=== PATIENT | male | born 1980 | race Caucasian/White ===

== ENCOUNTER 2021-08-20 09:08 | Emergency (ER) | payer MEDICARE, MEDICAID, SELFPAY ==
--- NOTE | ~2021-08-20 | CT_ITS ---
EXAMINATION: CT ANGIOGRAM OF THE CHEST WITH AND WITHOUT CONTRAST (CT PULMONARY ANGIOGRAM FOR PE) CLINICAL INFORMATION: Palpitations, tachycardia, elevated d dimer COMPARISON: None TECHNIQUE: Prior to contrast administration, noncontrast localization images were obtained. Subsequently, multidetector volumetric imaging was performed from the thoracic inlet to below the diaphragms following the administration of 80 mL Omnipaque 350 intravenous contrast. No contrast reaction reported Sagittal, coronal, and MIP oblique sagittal reformatted images were obtained on the CT workstation, uploaded to PACS, and reviewed. This CT examination was performed using dose optimization techniques as appropriate, variously including the following: *Automated exposure control *Adjustment of mA and/or kV according to patient size (this includes techniques or standardized protocols for targeted exams where dose is matched to indication/reason for exam; i.e. extremities or head) *Use of iterative reconstruction technique Total exam dose-length product 274 mGy-cm FINDINGS: QUALITY OF STUDY/CONTRAST BOLUS: Satisfactory. Mild respiratory motion artifact limits evaluation for small nodules and emboli. PULMONARY ARTERIES: No central or segmental pulmonary emboli. THORACIC AORTA: No aneurysm or dissection. LUNGS/PLEURA/AIRWAYS: Mild biapical pleural thickening and scarring. A subpleural nodule laterally in the left lower lobe measures 0.4 cm (image 45, series 8). No pleural effusions. The airways are patent. MEDIASTINUM: The thyroid gland is unremarkable. Mild thymic tissue in the anterior mediastinum without abnormality. Normal heart size. No pericardial effusion. No hilar or mediastinal lymphadenopathy. No evidence of septal bowing or right heart strain. CHEST WALL/AXILLA: No axillary or internal mammary lymphadenopathy. OSSEOUS STRUCTURES: No acute or suspicious osseous abnormality. UPPER ABDOMEN: Unremarkable. No reflux of contrast into the hepatic veins to suggest elevated right heart pressures. CT/CT angio chest PE protocol IMPRESSION: 1. No evidence for pulmonary embolism. 2. 0.4 cm subpleural nodule in the left lower lobe is nonspecific. Following Fleischner Society guidelines, no imaging follow-up is recommended at this time. No acute cardiopulmonary process. VTE: Negative.
--- NOTE | ~2021-08-20 | XR_ITS ---
EXAMINATION: XR CHEST CLINICAL INFORMATION: Chest pain. COMPARISON: Left rib and chest radiographs dated 11/16/2015. TECHNIQUE: 2 views of the chest were obtained. FINDINGS: No significant abnormality is noted involving the heart, lungs, mediastinum, bony thorax or soft tissues. XR/XR chest 2V IMPRESSION: No acute cardiopulmonary process.
--- NOTE | 2021-08-20 09:15 | ECG_ITS ---
Test Reason : cp Blood Pressure : / mmHG Vent. Rate : 058 BPM Atrial Rate : 058 BPM P-R Int : 146 ms QRS Dur : 084 ms QT Int : 376 ms P-R-T Axes : 058 063 063 degrees QTc Int : 369 ms Sinus bradycardia Otherwise normal ECG When compared with ECG of 16-NOV-2015 14:53, No significant change was found Referred By: Generic ED Physician Electronically Signed By:ALISON BRADSHAW MD
[2021-08-20 09:23] VITALS: BP 125/78; PULSE 59; RESP 16; TEMP 36.1; O2SAT 100; BMI 22.1
[2021-08-20 09:39] LABS: MANUAL DIFF FLAG NO
[2021-08-20 09:41] LABS: Basophils Percent Auto 0.5 % (0-2); Eosinophils Absolute Auto 0.2 X10*3/uL (0.0-0.4); Eosinophils Percent Auto 3.3 % (0-4); Hematocrit 41.6 % (42.0-52.0); Imm Gran Abs Auto 0.01 X10*3/uL (0.00-0.03); Imm Gran Pct Auto 0.2 % (0.0-0.4); Lymphocytes Absolute Auto 1.5 X10*3/uL (1.2-4.9); Lymphocytes Percent Auto 23.6 % (20-40); Mean Corpuscular HGB Conc 33.7 g/dl (31.0-36.0); Mean Corpuscular Hemoglobin 29.1 pg (27.0-33.0); Mean Corpuscular Volume 86.5 fL (80.0-98.0); Mean Platelet Volume 10.3 fL (9.4-12.4); Monocytes Absolute Auto 0.4 X10*3/uL (0.1-1.2); Monocytes Percent Auto 6.1 % (2-11); Neutrophils Absolute Auto 4.2 x10*3/uL (2.0-8.3); Neutrophils Percent Auto 66.3 % (45-73); Platelet Count 246 X10*3/uL (160-400); Red Blood Count 4.81 X10*6/uL (4.60-5.80); Red Cell Distribution Width 13.2 % (11.0-16.0); White Blood Count 6.4 X10*3/uL (4.8-10.8)
[2021-08-20 09:55] LABS: Anion Gap 11 (12-20); Blood Urea Nitrogen 17 mg/dL (9-16); Calcium 9.1 mg/dL (8.4-10.2); Carbon Dioxide 26 mmol/L (22-29); Chloride 105 mmol/L (96-108); Creatinine Clr Calc Pharmacy 105.8; Estimated Glomerular Filt Rate > 60; Glucose Random 98 mg/dL (60-115); Potassium 4.6 mmol/L (3.3-5.1); Sodium 137 mmol/L (135-145)
[2021-08-20 10:03] LABS: Troponin-I High Sensitivity 9.9 ng/L (<3.5-35.0)
--- NOTE | 2021-08-20 11:33 | ED.CHESTPAIN ---
HPI - Chest Pain General Chief Complaint: Chest Pain Stated Complaint: ref by doctor: heart pain Time Seen by Provider: 08/20/21 11:33 Source: patient Mode of arrival: ambulatory Limitations: no limitations History of Present Illness HPI narrative: 40 yo male UC on q4 remicade here with intermittent episodes of palpitations with racing heart rate since yesterday. No associated CP, SOB, nausea, vomiting, diaphoresis, leg swelling or pain. No recent travel or sick contact. Has been drinking pre-workout this past week which is new. Episodes last 30 seconds and self resolve. Patient has been monitoring the episodes on his Apple watch and has noted his heart rate has gone up to 160 at times. Episodes occur at rest. Related Data Allergies Allergy/AdvReac Type Severity Reaction Status Date / Time No Known Allergies Allergy Unverified 01/30/20 16:52 [No Known Allergies*] Review of Systems Review of Systems: Yes all other systems are reviewed and are negative Constitutional: Constitutional: Reports no additional constitutional complaints, Denies body ache(s), Denies chills, Denies fever(s), Denies headache(s) and Denies weakness Eyes: Eyes: Reports no additional eye complaints and Denies change in vision ENT: Reports system reviewed and no additional complaints, except as documented, Denies dizziness, Denies headache(s), Denies nasal congestion, Denies nasal discharge and Denies neck pain Cardiovascular: Cardiovascular: Reports no additional cardiovascular complaints, Denies chest pain, Denies leg edema, Reports palpitations and Denies dyspnea Respiratory: Respiratory: Reports no additional respiratory complaints, Denies cough and Denies dyspnea Gastrointestinal: Gastrointestinal: Reports no additional gastrointestinal complaints, Denies abdominal pain, Denies diarrhea, Denies nausea and Denies vomiting Genitourinary: Genitourinary: Denies urinary incontinence Musculoskeletal: Musculoskeletal: Reports no additional musculoskeletal complaints, Denies back pain, Denies arthralgias, Denies joint swelling, Denies neck pain, Denies numbness and Denies tingling Integumentary/Breasts: Skin/Breast: Reports system reviewed and no additional complaints, except as docu and Denies rash Neurologic: Reports system reviewed and no additional complaints, except as documented, Denies Abnormal speech present, Denies dizziness, Denies headache(s), Denies numbness, Denies tingling and Denies weakness Endocrine: Endocrine: Reports palpitations [facility] Past Medical History Attestation statement: The following information was validated with the patient. Source: old records reviewed and nursing notes reviewed Medical History Ulcerative colitis Social History Social History Advance Directives: Yes Advance Directives Information Provided: Yes Advance Directives on File: No Physical Exam Vital Signs: Vital Signs: Last Vital Signs Temp 98.1 F 08/20/21 15:42 Pulse 58 08/20/21 15:42 Resp 16 08/20/21 15:42 BP 111/63 08/20/21 15:42 Pulse Ox 98 08/20/21 15:42 BMI result Body Mass Index 22.1 Const: General: cooperative, healthy appearing, comfortable and no acute distress Orientation/consciousness: patient oriented x3 Limitations: no limitations HEENT: Head: Yes normal to inspection Ears: hearing grossly normal bilaterally and TM's normal bilaterally General nose exam: Normal external nose present Face and sinus: Yes normal facial exam Mouth: Normal oral and palatal mucosa present Throat: Yes posterior oropharynx normal, Yes tonsils normal and Yes uvula midline Eyes: General: appearance normal, both eyes and all related structures Pupils: Equal, round and reactive pupils present Neck: Neck: Yes normal visual inspection Chest: Chest palpation & inspection: normal inspection of the chest Resp: Effort & Inspection: normal respiratory effort Auscultation: clear to auscultation bilaterally Cardio: Rate: regular rate Rhythm: regular rhythm Peripheral pulses: Peripheral pulses 2+ throughout GI: Inspection: Yes normal to inspection Palpation (GI): Soft to palpation and nontender Auscultation: normal bowel sounds Back/Spine/Pelvis: Thoracic/Lumbar Spine: thoracic and lumbar spine normal to inspection Skin: General skin exam: no rashes or lesions noted Neuro: General: patient oriented x3, no focal motor deficits and normal sensation to monofilament Cranial nerves: Yes Equal, round and reactive pupils present Cognition (Neuro): normal cognition Speech: No Abnormal speech present Gait exam (Neuro): Normal gait present Motor exam (neuro): 5/5 motor strength present throughout Extrem: General: Yes normal to inspection, Yes no pedal edema and Yes no calf tenderness Course Course Course Narrative: 1130-This is a rapid medical exam. 40 yo male healthy here with palpitations since last evening (episodes occurring for 30 seconds with heart rate up to 170 on apple watch). hr NORMAL now. Will need labs, EKG, CXR, period of monitoring 1430-labs unremarkable with exception of indeterminate D-dimer. Will obtain CTA to rule out PE. 1800-CTA negative for pulmonary embolism. Patient was on the monitor here in the emergency department for several hours with no ectopy or arrhythmia noted. I discussed the case with Dr. Leger. Baseline heart rate is 50. Hesitant to start any beta adiel or medications with lower baseline heart rate. Patient will need follow-up with Cardiology for Holter monitor. We discussed avoiding stimulants or caffeine, returning for persistent episodes of tachycardia. 1845-spoke to Cardiology Dr. Tay. Recommended patient follow-up with him in the office. Requested me to order a 7 day Holter monitor for the patient outpatient. Reviewed worrisome signs and symptoms of when to return to the emergency department. Comfortable discharge home. MDM - Chest Pain MDM Narrative Medical decision making narrative: Electrolyte abnormality, tachyarrhythmia Medical Records Data Attestation: I reviewed the patient's medical records. Lab Data Attestation: I reviewed the patient's lab results. Result diagrams: 08/20/21 09:35 08/20/21 09:35 Labs: Lab Results 08/20/21 08/20/21 08/20/21 Range/Units 09:35 09:35 09:35 WBC 6.4 (4.8-10.8) X10*3/uL RBC 4.81 (4.60-5.80) X10*6/uL Hgb 14.0 (14.0-18.0) g/dl Hct 41.6 L (42.0-52.0) % MCV 86.5 (80.0-98.0) fL MCH 29.1 (27.0-33.0) pg MCHC 33.7 (31.0-36.0) g/dl RDW 13.2 (11.0-16.0) % Plt Count 246 (160-400) X10*3/uL MPV 10.3 (9.4-12.4) fL Immature Gran % (Auto) 0.2 (0.0-0.4) % Neut % (Auto) 66.3 (45-73) % Lymph % (Auto) 23.6 (20-40) % [place] % (Auto) 6.1 (2-11) % Eos % (Auto) 3.3 (0-4) % Baso % (Auto) 0.5 (0-2) % Lymph # (Auto) 1.5 (1.2-4.9) X10*3/uL [place] # (Auto) 0.4 (0.1-1.2) X10*3/uL Eos # (Auto) 0.2 (0.0-0.4) X10*3/uL Baso # (Auto) 0.0 (0.0-0.2) X10*3/uL Abs Immat Gran (auto) 0.01 (0.00-0.03) X10*3/uL Absolute Neuts (auto) 4.2 (2.0-8.3) x10*3/uL Absolute Nucleated RBC 0.000 (0.0-0.012) X10*3/uL Nucleated RBC % (auto) 0.0 (0.0-0.2) /100WBC PT (9.9-13.0) SEC INR (0.9-1.1) D-Dimer High Sensitivty NG/ML Sodium 137 (135-145) mmol/L Potassium 4.6 (3.3-5.1) mmol/L Chloride 105 (96-108) mmol/L Carbon Dioxide 26 (22-29) mmol/L Anion Gap 11 L (12-20) BUN 17 H (9-16) mg/dL Creatinine 0.96 (0.5-1.4) mg/dL Estim Creat Clear Calc 105.8 Estimated GFR > 60 Random Glucose 98 (60-115) mg/dL Calcium 9.1 (8.4-10.2) mg/dL Magnesium 1.7 (1.6-2.6) mg/dL Total Bilirubin 0.7 (0.0-1.0) mg/dL Direct Bilirubin 0.3 (0.0-0.5) mg/dL AST 33 (5-37) U/L ALT 32 (0-40) U/L Alkaline Phosphatase 60 (39-117) U/L Troponin I High Sens 9.9 (<3.5-35.0) ng/L Total Protein 7.2 (6.5-8.0) g/dL Albumin 4.1 (3.5-5.0) g/dL TSH 0.97 (0.32-4.0) uIU/mL 08/20/21 08/20/21 Range/Units 13:22 13:22 WBC (4.8-10.8) X10*3/uL RBC (4.60-5.80) X10*6/uL Hgb (14.0-18.0) g/dl Hct (42.0-52.0) % MCV (80.0-98.0) fL MCH (27.0-33.0) pg MCHC (31.0-36.0) g/dl RDW (11.0-16.0) % Plt Count (160-400) X10*3/uL MPV (9.4-12.4) fL Immature Gran % (Auto) (0.0-0.4) % Neut % (Auto) (45-73) % Lymph % (Auto) (20-40) % [place] % (Auto) (2-11) % Eos % (Auto) (0-4) % Baso % (Auto) (0-2) % Lymph # (Auto) (1.2-4.9) X10*3/uL [place] # (Auto) (0.1-1.2) X10*3/uL Eos # (Auto) (0.0-0.4) X10*3/uL Baso # (Auto) (0.0-0.2) X10*3/uL Abs Immat Gran (auto) (0.00-0.03) X10*3/uL Absolute Neuts (auto) (2.0-8.3) x10*3/uL Absolute Nucleated RBC (0.0-0.012) X10*3/uL Nucleated RBC % (auto) (0.0-0.2) /100WBC PT 12.4 (9.9-13.0) SEC INR 1.1 (0.9-1.1) D-Dimer High Sensitivty 191 NG/ML Sodium (135-145) mmol/L Potassium (3.3-5.1) mmol/L Chloride (96-108) mmol/L Carbon Dioxide (22-29) mmol/L Anion Gap (12-20) BUN (9-16) mg/dL Creatinine (0.5-1.4) mg/dL Estim Creat Clear Calc Estimated GFR Random Glucose (60-115) mg/dL Calcium (8.4-10.2) mg/dL Magnesium (1.6-2.6) mg/dL Total Bilirubin (0.0-1.0) mg/dL Direct Bilirubin (0.0-0.5) mg/dL AST (5-37) U/L ALT (0-40) U/L Alkaline Phosphatase (39-117) U/L Troponin I High Sens 9.4 (<3.5-35.0) ng/L Total Protein (6.5-8.0) g/dL Albumin (3.5-5.0) g/dL TSH (0.32-4.0) uIU/mL Imaging Data CT scan - chest: Attestation: I personally reviewed and interpreted this imaging study as follows: Radiologist's impression: FINDINGS: QUALITY OF STUDY/CONTRAST BOLUS: Satisfactory. Mild respiratory motion artifact limits evaluation for small nodules and emboli. PULMONARY ARTERIES: No central or segmental pulmonary emboli.? THORACIC AORTA: No aneurysm or dissection. LUNGS/PLEURA/AIRWAYS: Mild biapical pleural thickening and scarring. A subpleural nodule laterally in the left lower lobe measures 0.4 cm (image 45, series 8). No pleural effusions. The airways are patent. MEDIASTINUM: The thyroid gland is unremarkable. Mild thymic tissue in the anterior mediastinum without abnormality. Normal heart size.? No pericardial effusion.? No hilar or mediastinal lymphadenopathy.? No evidence of septal bowing or right heart strain. CHEST WALL/AXILLA: No axillary or internal mammary lymphadenopathy. OSSEOUS STRUCTURES: No acute or suspicious osseous abnormality.? UPPER ABDOMEN: Unremarkable.? No reflux of contrast into the hepatic veins to suggest elevated right heart pressures. CT/CT angio chest PE protocol IMPRESSION: ? 1. No evidence for pulmonary embolism. 2. 0.4 cm subpleural nodule in the left lower lobe is nonspecific. Following Fleischner Society guidelines, no imaging follow-up is recommended at this time. No acute cardiopulmonary process. ? VTE: Negative. ECG Data ECG #1: Attestation: I personally reviewed and interpreted this ECG as follows: ECG interpretation date: 08/20/21 ECG interpretation time: 09:24 Interpretation: Sinus bradycardia with rate 58, normal [place], normal QRS, normal QT Discharge Plan Discharge Clinical Impression: Palpitations Patient Disposition: Home, Self-Care Instructions: Heart Palpitations (ED) Additional Instructions: Avoid any stimulants like caffeine or pre workout Follow-up with cardiology Referrals: Angel Tay MD [Physician] - 1 week Interventions: ED Discharge Assessment Last Done: 08/20/21 18:00 Discharge Date/Time: 08/20/21 18:00
[2021-08-20 12:04] LABS: Alanine Aminotransferase 32 U/L (0-40); Albumin Level 4.1 g/dL (3.5-5.0); Alkaline Phosphatase 60 U/L (39-117); Aspartate Amino Transferase 33 U/L (5-37); Bilirubin Direct 0.3 mg/dL (0.0-0.5); Bilirubin Total 0.7 mg/dL (0.0-1.0); Magnesium 1.7 mg/dL (1.6-2.6); Total Protein 7.2 g/dL (6.5-8.0)
[2021-08-20 12:25] LABS: Thyroid Stimulating Hormone 0.97 uIU/mL (0.32-4.0)
[2021-08-20 12:47] VITALS: BP 127/73; PULSE 58; O2SAT 99
[2021-08-20 13:51] LABS: Troponin-I High Sensitivity 9.4 ng/L (<3.5-35.0)
[2021-08-20 13:55] LABS: INTERNATIONAL NORM RATIO 1.1 (0.9-1.1); Prothrombin Time 12.4 SEC (9.9-13.0)
[2021-08-20 13:57] LABS: D Dimer High Sensitivity 191 NG/ML
[2021-08-20] MEDS: iohexoL 350 MG/ML 100 ML INFUS..BTL IV (15:20)
[2021-08-20 15:42] VITALS: BP 111/63; PULSE 58; RESP 16; TEMP 36.7; O2SAT 98
== END 2021-08-20 18:00 | disposition home or self-care (01) ==
PROVIDERS: Nurse Practitioner Family; Emergency Provider Emergency Medicine; PCP Internal Medicine
DX: R07.89 Other chest pain (principal); R00.2 Palpitations; Z79.899 Other long term (current) drug therapy
CPT/HCPCS: 36415; 71046; 71275; 80048; 80076; 83735; 84443; 84484; 85025; 85379; 85610; 93005; 99284; Q9967

== ENCOUNTER 2022-05-14 16:14 | Emergency (ER) | payer OTHER, SELFPAY ==
--- NOTE | ~2022-05-14 | XR_ITS ---
EXAMINATION: XR SHOULDER, RIGHT CLINICAL INFORMATION: Right shoulder dislocation COMPARISON: None TECHNIQUE: Three views of the right shoulder. FINDINGS: No dislocation of the right shoulder is identified. No calcific tendinitis is seen. Acromioclavicular joint appears unremarkable. No widening of the coracoclavicular space. There is a 7 mm calcific/bony density seen inferior to the glenoid with the appearance of a fracture fragment with donor site about the inferior glenoid. XR/XR shoulder RT min 2V IMPRESSION: No dislocation identified. Appearance of 7 mm bony fragment inferior to the glenoid.
[2022-05-14 16:19] VITALS: BP 138/87; PULSE 65; RESP 16; TEMP 36.4; O2SAT 97; BMI 22.4
--- NOTE | 2022-05-14 16:19 | ED.GENADULT ---
HPI - General Adult General Chief complaint: Extremity Injury, Upper Stated complaint: ?Shoulder dislocation Time Seen by Provider: 05/14/22 16:16 Source: patient Mode of arrival: ambulatory Limitations: no limitations History of Present Illness HPI narrative: Patient is a 41 year old assigned male at with no reported medical history presenting to the emergency department today with a dislocated right shoulder. Patient states that he was skiing 2 days ago when his right shoulder dislocated. Patient states that he was seen at an emergency department, his shoulder was put back in, and he was placed in a sling. Patient states that he was not wearing his sling when he went to reach for something with his right arm and his shoulder dislocated again. Patient denies any dizziness, lightheadedness, abdominal pain, nausea, vomiting, fever, chills, blurry vision, double vision, loss of vision, chest pain, difficulty breathing, shortness of breath, back pain, night sweats, pain with urination, increased urinary frequency, increased urinary urgency, blood in his urine or stool, syncope or a near syncopal episode, bowel incontinence, bladder incontinence, bowel retention, bladder retention, or any other complaints at this time. Onset (ago): minute(s) Location: right and upper extremity Radiation: non-radiation Severity: moderate Severity scale (1-10): 4 Relieving factors: none Exacerbating factors: none Associated symptoms: denies other symptoms Treatments prior to arrival: none Related Data Allergies Allergy/AdvReac Type Severity Reaction Status Date / Time No Known Allergies Allergy Verified 05/14/22 16:18 [No Known Allergies*] Review of Systems Constitutional: Constitutional: Reports no additional constitutional complaints, Denies chills, Denies fever(s) and Denies night sweats Eyes: Eyes: Reports no additional eye complaints, Denies blurry vision, Denies change in vision, Denies diplopia, Denies eye discharge, Denies loss of vision and Denies eye pain ENT: Denies dizziness Cardiovascular: Cardiovascular: Reports no additional cardiovascular complaints, Denies chest pain, Denies lightheadedness, Denies Loss of Consciousness and Denies dyspnea Respiratory: Respiratory: Reports no additional respiratory complaints and Denies dyspnea Gastrointestinal: Gastrointestinal: Reports no additional gastrointestinal complaints, Denies abdominal pain, Denies melena, Denies hematochezia, Denies change in bowel habits and Denies change in stool character Genitourinary: Genitourinary: Reports no additional male genitourinary complaints, Denies hematuria, Denies oliguria, Denies difficulty urinating, Denies dysuria, Denies urinary frequency, Denies urinary hesitancy, Denies urinary incontinence and Denies urinary urgency Musculoskeletal: Musculoskeletal: Reports no additional musculoskeletal complaints, Denies numbness and Denies tingling Comments: right sholder dislocation Neurologic: Denies dizziness, Denies loss of vision, Denies numbness and Denies tingling Psychiatric: Psychiatric: Reports no additional psychiatric complaints Endocrine: Endocrine: Reports no additional endocrine complaints Hematologic/Lymphatic: Hematologic/Lymphatic: Reports no additional hematologic/lymphatic complaints Allergic/Immunologic: Allergic/Immunologic: Reports no additional allergic/immunologic complaints PMFSH Past Medical History Attestation statement: The following information was validated with the patient. Source: old records reviewed and nursing notes reviewed Medical History Ulcerative colitis Social History Social History Advance Directives: No Advance Directives Information Provided: Yes Physical Exam ED Vital Signs: Vital Signs - 24 hr 05/14/22 16:19 Temperature 97.5 F Pulse Rate 65 Respiratory Rate 16 Blood Pressure 138/87 Pulse Oximetry 97 Oxygen Delivery Method Room Air BMI result Body Mass Index 22.4 Const General: cooperative, no acute distress, alert and awake Nutritional Appearance: well nourished Orientation/consciousness: patient oriented x3 Limitations: no limitations [facility] Head: Yes normal to inspection and Yes atraumatic Ears: hearing grossly normal bilaterally and external ears normal General nose exam: Normal external nose present, no nasal discharge noted and no epistaxis Face and sinus: Yes normal facial exam, No abrasion and No laceration Mouth: Normal oral and palatal mucosa present, no drooling and no muffled voice Eyes General: appearance normal, both eyes and all related structures Periorbital: periorbital findings normal Eyelids: Yes eyelids normal Conjunctivae: conjunctivae normal Pupils: Equal, round and reactive pupils present EOM: EOMs intact bilaterally Neck Neck: Yes normal visual inspection, Yes full ROM and Yes no lymphadenopathy Chest Chest palpation & inspection: normal inspection of the chest Resp Effort & Inspection: normal respiratory effort and able to speak in complete sentences Auscultation: clear to auscultation bilaterally Cardio Rate: regular rate Rhythm: regular rhythm GI Inspection: Yes normal to inspection Palpation (GI): Soft to palpation, not firm, nontender, no guarding and not rigid Neuro General: patient oriented x3 and moves all extremities Cranial nerves: Yes Equal, round and reactive pupils present Cognition (Neuro): normal cognition Motor exam (neuro): 5/5 motor strength present throughout Sensory Exam: Normal double simultaneous stimulation for sensation Coordination: [id number] test normal Extrem Other: right shoulder obviously dislocated, limited ROM of right shoulder secondary to pain General: Yes capillary refill normal Psych Appearance: grossly normal Mental Status: mental status grossly normal Affect: normal affect Attitude: cooperative Thought process: Normal thought process present Thought content: Normal thought content present Insight: Good insight present (Psych) Procedures Orthopedic Joint Reduction Joint #1: Time Out Performed: Yes Side: right Joint Reduction Location: shoulder Shoulder Technique Used (if applicable): traction/counter-traction Technique used: traction/counter-traction Post-reduction neuro exam: intact Post-reduction vascular: intact Post Reduction X-Ray Obtained: Yes Post Reduction X-Ray Results: reduced Splint Applied: Yes Patient Tolerated Procedure: well Orthopedic Splinting/Casting Injury #1: Side: right Upper Extremity Injury Location: shoulder Upper Extremity Immobilizer: sling/shoulder immobilizer Medical Decision Making Medical Decision Making MDM Narrative: Patient is a 41 year old assigned male at with no reported medical history presenting to the emergency department today with a dislocated right shoulder. Patient's physical exam showed an obviously dislocated right shoulder. Patient's shoulder was reduced, per procedure note, without incident. Patient's right shoulder x-ray showed no acute process. Patient aware of 7mm bony density noted on this imaging and has follow up planned already. Patient's right shoulder was placed in a sling, without incident. I explained my physical exam findings as well as all test results to the patient. I answered all questions asked by the patient. I stressed the importance of the patient taking his medication as prescribed. I stressed the importance of the patient following up with his primary care provider and an orthopedic provider. I stressed the importance of the patient returning to the emergency department immediately if his symptoms were to worsen or if he were to develop any dizziness, shortness of breath, difficulty breathing, chest pain, blurry vision, loss of vision, nausea, vomiting, abdominal pain, fever, chills, back pain, or any other complaints. Patient verbalized agreement and understanding with this treatment plan and discharge. Differential Diagnosis Differential Diagnoses: The differential diagnosis associated with the presentation includes shoulder dislocation Radiology Impression Discussion of test interpretation with radiology: I have reviewed the radiologist's reading. Radiologist Impression: My interpretation is in agreement with the radiologist's impression of this imaging study. EXAMINATION: XR SHOULDER, RIGHT CLINICAL INFORMATION: Right shoulder dislocation? COMPARISON: None? TECHNIQUE: Three views of the right shoulder. FINDINGS: No dislocation of the right shoulder is identified. No calcific tendinitis is seen. Acromioclavicular joint appears unremarkable. No widening of the coracoclavicular space. There is a 7 mm calcific/bony density seen inferior to the glenoid with the appearance of a fracture fragment with donor site about the inferior glenoid.? XR/XR shoulder RT min 2V IMPRESSION: No dislocation identified. ? Appearance of 7 mm bony fragment inferior to the glenoid. Dictated By: Edison Gomes MD Signed By: Electronically signed by Edison Gomes MD 05/14/22 [id number] Discharge Plan Discharge Clinical Impression: Dislocation of shoulder Patient Disposition: Home, Self-Care Instructions: Shoulder Dislocation (ED) Additional Instructions: Follow up with your primary care provider and your orthopedic provider. Return to the emergency department immediately if your symptoms worsen or if you develop any dizziness, shortness of breath, difficulty breathing, chest pain, blurry vision, loss of vision, nausea, vomiting, abdominal pain, fever, chills, back pain, or any other complaints. Referrals: [facility] [place] [facility] [Provider Group] (Call to establish and follow up with an orthopedic provider. ) Kali Lemus MD [Primary Care Provider] - Stand Alone Forms: Work/School Release Interventions: ED Discharge Assessment Last Done: 05/14/22 16:45 Discharge Date/Time: 05/14/22 16:46 Print Language: Serbian
== END 2022-05-14 16:46 | disposition home or self-care (01) ==
PROVIDERS: Emergency Provider Emergency Medicine; PCP Internal Medicine
DX: M24.411 Recurrent dislocation, right shoulder (principal)
CPT/HCPCS: 23650; 73030; 99282; 99284

== ENCOUNTER 2023-08-22 08:36 | Inpatient (IN) | payer OTHER, SELFPAY ==
[2023-08-22] VITALS (9 sets, daily range): BP systolic 128–169; BP diastolic 71–99; PULSE 55–71; RESP 16–19; TEMP 36.1–36.7; O2SAT 95–100; BMI 22.4
--- NOTE | ~2023-08-22 | CT_ITS ---
EXAMINATION: CT chest w IV con. CLINICAL INFORMATION: Reason for Exam Blunt injury/scapular fracture COMPARISON: Prior CT 2021 TECHNIQUE: Multidetector volumetric CT imaging of the chest was done. Axial MIP volume rendering provided. Sagittal and coronal reformatted images were obtained. This CT examination was performed using dose optimization techniques as appropriate, variously including the following: *Automated exposure control *Adjustment of mA and/or kV according to patient size (this includes techniques or standardized protocols for targeted exams where dose is matched to indication/reason for exam; i.e. extremities or head) *Use of iterative reconstruction technique CONTRAST: Noncontrasted study. DLP: 419 mGy-cm FINDINGS: BRIDGE INSTRUCTOR: LINES/TUBES: Staff Command And Control Officer reviewed, no lines. LUNGS: Lung parenchyma: No evidence of significant interstitial disease. Lung nodules/masses: No lung mass or suspicious spiculated nodules, there are few scattered tiny nonspecific lung nodular densities measuring up to 4 mm or less, 4 mm nodule middle lobe has not changed from prior exam. AIRWAYS: Trachea and bronchi are normal. PLEURA: No pleural effusion or pneumothorax. MEDIASTINUM AND SUZAN: No mediastinal, hilar or axillary lymphadenopathy. No mediastinal mass. VESSELS: HEART AND PERICARDIUM: Thoracic aorta is normal in size. Heart is normal in size. No pericardial effusion. No coronary calcifications. Pulmonary arteries are normal in size. LOWER NECK, AXILLA: The visualized thyroid gland is unremarkable. No axillary mass or adenopathy. VISUALIZED ABDOMEN: Unremarkable CHEST WALL AND BONES: No chest wall mass. There is a comminuted fracture of the left scapula involving the left scapular blade, multiple fragments mildly displaced. The glenoid process and articular surface is intact. Adjacent acromioclavicular joint and clavicles are intact. Mild degenerative osteoarthritis of both shoulders. No CT evidence of associated vascular injury. CT/CT chest w IV con IMPRESSION: 1. Comminuted fracture of the left scapula involving the scapular blade, multiple fragments mildly displaced. 2. No CT evidence of associated vascular injury. 3. No lung mass or suspicious spiculated nodules, there are few scattered tiny nonspecific lung nodular densities measuring up to 4 mm or less. According to the UPDATED 2017 Fleischner Society recommendations, the advised follow-up imaging for solid nodules <6 mm in the middle/lower lobes is no routine follow up.
--- NOTE | ~2023-08-22 | CT_ITS ---
EXAMINATION: CT CERVICAL SPINE WITHOUT CONTRAST CLINICAL INFORMATION: Neck injury and pain. History of cervical fracture COMPARISON: None available. TECHNIQUE: Multiple 3.0 and 0.6 mm axial images were obtained from base of skull to T1 levels without IV contrast enhancement. Sagittal and coronal 2.0 mm bone window images were reconstructed from axial image data. This CT examination was performed using dose optimization techniques as appropriate, variously including the following: *Automated exposure control *Adjustment of mA and/or kV according to patient size (this includes techniques or standardized protocols for targeted exams where dose is matched to indication/reason for exam; i.e. extremities or head) *Use of iterative reconstruction technique DLP: 566 mGy-cm FINDINGS: C1/C2: Bony structures are intact with normal alignment. There is no spinal stenosis. C2/C3: Bony structures are intact with normal alignment. There is no spinal stenosis. There is mild asymmetric left C2/C3 neuroforaminal stenosis. Bilateral apophyseal joints are intact with normal alignment. C3/C4: Bony structures are intact with mild kyphosis. There is no spinal stenosis. Bilateral C3/C4 neuroforamina are patent. Bilateral apophyseal joints are intact with normal alignment. C4/C5: C4-C5 ACDF, with intervertebral spacer, fixation with anterior metallic plate and cortical screws is seen. There is no spinal stenosis. There is mild asymmetric left C4/C5 neuroforaminal stenosis. Bilateral apophyseal joints are intact with normal alignment. C5/C6: C5-C6 ACDF, with intervertebral spacer, fixation with anterior metallic plate and cortical screws is seen. There is no spinal stenosis. Bilateral C5/C6 neuroforamina are patent. Bilateral apophyseal joints are intact with normal alignment. C6/C7: Bony structures are intact with normal alignment. Large left anterior C6-C7 bridging syndesmophytes are present. There is mild decrease in intervertebral disc height. There is no spinal stenosis. Bilateral C6/C7 neuroforamina are mildly stenosed. A sclerotic bone island is seen at the left lateral border of C7 vertebral body. Bilateral apophyseal joints are intact with normal alignment. C7/T1: Bony structures are intact with normal alignment. There is marked loss of intervertebral disc height. Anterior superior T1 limbus vertebra is seen. There is no spinal stenosis. Bilateral C7/T1 neuroforamina are mildly stenosed. Bilateral apophyseal joints are intact with normal alignment. CT/CT cervical spine wo IV con IMPRESSION: 1. No evidence of acute fracture or dislocation. 2. Status post C4-C6 ACDF, with intervertebral spacers, fixation with anterior metallic plate and cortical screws. 3. Mild asymmetric left C2/C3, left C4/C5, bilateral C6/C7 and bilateral C7/T1 neuroforaminal stenosis. 4. Large left anterior C6-C7 bridging syndesmophytes.
--- NOTE | ~2023-08-22 | CT_ITS ---
EXAMINATION: CT HEAD WITHOUT CONTRAST CLINICAL INFORMATION: Blunt head trauma without loss of consciousness, significant head injury and posttraumatic headache. COMPARISON: None available. TECHNIQUE: Contiguous axial imaging was performed from the skull base to vertex without intravenous administration of contrast. This CT examination was performed using dose optimization techniques as appropriate, variously including the following: *Automated exposure control *Adjustment of mA and/or kV according to patient size (this includes techniques or standardized protocols for targeted exams where dose is matched to indication/reason for exam; i.e. extremities or head) *Use of iterative reconstruction technique DLP: 766 mGy-cm FINDINGS: Ventricles, sulci and cisterns are normal. There is no midline shift, no abnormal intra- or extra- axial fluid accumulation. [place] and white matter differentiation is normal. Bone window images show no evidence of skull fracture. Bilateral ethmoid sinuses show marked mucosal thickening causing almost complete opacification, worse on the right side. Mild mucosal thickening is also seen at anterior wall of bilateral sphenoid sinuses. Right frontal sinus is not well pneumatized. CT/CT head/brain wo IV con IMPRESSION: 1. Normal CT scan of the brain. 2. No intracranial hemorrhage or skull fracture is seen. 3. No evidence of space occupying lesion could be found. 4. The current plain CT scan of the brain shows no diagnostic evidence of acute cerebral infarction. 5. Marked bilateral ethmoid sinusitis.
--- NOTE | ~2023-08-22 | CT_ITS ---
EXAMINATION: CT SHOULDER WITHOUT CONTRAST, LEFT CLINICAL INFORMATION: Left shoulder pain following injury. Question scapular fracture. COMPARISON: Left shoulder radiographs done earlier the same day. TECHNIQUE: Contiguous axial CT images of the left shoulder were obtained without contrast. Multiplanar reformats were provided and reviewed. 3-D reconstructions were obtained on an independent workstation with concurrent physician supervision and provided for review. FINDINGS: There is a mildly displaced and slightly comminuted fracture through the inferior scapular angle and extending proximally within the central aspect of the scapular body. The dominant oblique fracture line measures up to 9.5 cm in craniocaudal dimension with a central scapular fracture gap measuring up to 0.9 cm. The fracture gap along the inferior angle measures up to 0.3 cm. There is superior extension through the central aspect of the scapular spine as well as through the superior margin of the scapula where there is apex dorsal angulation. No extension of a fracture line to the glenoid articular surface. No additional fracture. No dislocation. No significant joint space narrowing or marginal osteophytes. No concerning lytic or blastic osseous lesion. The visualized muscles and tendons are grossly intact, however, evaluation is significantly limited on CT examination. No soft tissue mass or fluid collection. No axillary lymphadenopathy. The visualized left lung is clear. CT/CT shoulder LT wo IV con IMPRESSION: Mildly displaced and comminuted fracture of the scapular body extending from the superior margin inferiorly through the central aspect of the scapular spine as well as through the scapular body where it contacts the inferior angle. No extension to an articular surface.
--- NOTE | ~2023-08-22 | XR_ITS ---
EXAMINATION: XR SHOULDER, LEFT CLINICAL INFORMATION: Pain. Injury. COMPARISON: None available. TECHNIQUE: Two views of the left shoulder. FINDINGS: There are 2 dense sclerotic lines and single longer radiolucent line questionable for fracture of the scapula. No clavicle or humerus fracture seen. Glenohumeral and acromioclavicular joints are normal-appearing. Visualized left lung is clear. There may be soft tissue swelling adjacent to the left shoulder. XR/XR shoulder LT min 2V IMPRESSION: Question left scapula fracture. A CT of the left shoulder has been ordered.
--- NOTE | 2023-08-22 08:41 | ED_ITS ---
HPI - Extremity Problem General Chief complaint: Extremity Injury, Upper Stated complaint: L shoulder inj Time Seen by Provider: 08/22/23 08:41 Source: patient and family (patient's daughter) Mode of arrival: wheelchair Limitations: no limitations History of Present Illness HPI Narrative: Patient is a 42 year old assigned male at with a history of multiple right shoulder dislocations presenting to the emergency department today with left shoulder pain after a branch fell on him. Patient states that he was doing tree work when a large branch fell onto his left shoulder. Patient denies any loss of consciousness, dizziness, lightheadedness, abdominal pain, nausea, vomiting, fever, chills, blurry vision, double vision, loss of vision, chest pain, difficulty breathing, shortness of breath, back pain, night sweats, pain with urination, increased urinary frequency, increased urinary urgency, blood in his urine or stool, syncope or a near syncopal episode, bowel incontinence, bladder incontinence, bowel retention, bladder retention, or any other complaints at this time. MD Complaint: extremity pain Onset (ago): minute(s) Pain Consistency: constant Location: left and upper extremity Severity scale (1-10): >10 Quality: stabbing, sharp and constant Radiation: none Relieving factors: immobilization Exacerbating factors: range of motion and palpation Associated symptoms: denies other symptoms Related Data Allergies Allergy/AdvReac Type Severity Reaction Status Date / Time No Known Allergies Allergy Verified 08/22/23 08:39 [No Known Allergies*] Review of Systems 2 Constitutional: Constitutional: Reports no additional constitutional complaints, Denies chills, Denies fever(s) and Denies night sweats Eyes: Eyes: Reports no additional eye complaints, Denies blurry vision, Denies change in vision, Denies diplopia, Denies eye discharge, Denies loss of vision and Denies eye pain ENT: Denies dizziness Cardiovascular: Cardiovascular: Reports no additional cardiovascular complaints, Denies chest pain, Denies lightheadedness, Denies Loss of Consciousness and Denies dyspnea Respiratory: Respiratory: Reports no additional respiratory complaints and Denies dyspnea Gastrointestinal: Gastrointestinal: Reports no additional gastrointestinal complaints, Denies abdominal pain, Denies melena, Denies hematochezia, Denies change in bowel habits and Denies change in stool character Genitourinary: Genitourinary: Reports no additional male genitourinary complaints, Denies hematuria, Denies oliguria, Denies difficulty urinating, Denies dysuria, Denies urinary frequency, Denies urinary hesitancy, Denies urinary incontinence and Denies urinary urgency Musculoskeletal: Musculoskeletal: Reports no additional musculoskeletal complaints, Denies numbness and Denies tingling Comments: left shoulder pain Neurologic: Denies dizziness, Denies loss of vision, Denies numbness and Denies tingling Psychiatric: Psychiatric: Reports no additional psychiatric complaints Endocrine: Endocrine: Reports no additional endocrine complaints Hematologic/Lymphatic: Hematologic/Lymphatic: Reports no additional hematologic/lymphatic complaints Allergic/Immunologic: Allergic/Immunologic: Reports no additional allergic/immunologic complaints PMFSH Past Medical History Attestation statement: The following information was validated with the patient. Source: old records reviewed and nursing notes reviewed Medical History Ulcerative colitis Social History Social History Advance Directives: Yes Advance Directives Information Provided: Yes Advance Directives on File: No Physical Exam 2 Vital Signs: Vital Signs: Last Vital Signs Temp 96.9 F 08/22/23 08:36 Pulse 57 08/22/23 14:05 Resp 19 08/22/23 14:05 BP 137/96 H 08/22/23 14:05 Pulse Ox 98 08/22/23 14:05 O2 Del Method Room Air 08/22/23 14:05 BMI result Body Mass Index 22.4 Const: General: cooperative, no acute distress, alert and awake Nutritional Appearance: well nourished Orientation/consciousness: patient oriented x3 Limitations: no limitations HEENT: Head: Yes normal to inspection and Yes atraumatic Ears: hearing grossly normal bilaterally and external ears normal General nose exam: Normal external nose present, no nasal discharge noted and no epistaxis Face and sinus: Yes normal facial exam, No abrasion and No laceration Mouth: Normal oral and palatal mucosa present, no drooling and no muffled voice Eyes: General: appearance normal, both eyes and all related structures P eriorbital: periorbital findings normal Eyelids: Yes eyelids normal C onjunctivae: conjunctivae normal Pupils: Equal, round and reactive pupils present EOM: EOMs intact bilaterally Neck: Neck: Yes normal visual inspection, Yes full ROM and Yes no lymphadenopathy Chest: Chest palpation & inspection: normal inspection of the chest Resp: Effort & Inspection: normal respiratory effort and able to speak in complete sentences GI: Inspection: Yes normal to inspection Neuro: General: patient oriented x3 and moves all extremities Cranial nerves: Yes Equal, round and reactive pupils present Cognition (Neuro): n ormal cognition Motor exam (neuro): 5/5 motor strength present throughout Sensory Exam: Normal double simultaneous stimulation for sensation C oordination: [id number] test normal Extrem: Other: pain to palpation of the left scapula, pain with ROM of the entire left upper extremity General: Yes normal to inspection and Yes capillary refill normal Psych: Appearance: grossly normal Mental Status: mental status grossly normal Affect: normal affect Attitude: cooperative Thought process: N ormal thought process present Thought content: Normal thought content present Insight: Good insight present (Psych) Course Reevaluation(s) Reevaluation #1: Patient with intractable pain, will continue to give IV Dilaudid, discussed with Case management who feels that the patient can me admitted Time: 16:19 Medications Administered Discontinued Medications Generic Name Dose Route Start Last Admin Trade Name Jacquie PRN Reason Stop Dose Admin Diazepam 2.5 mg 08/22/23 08:45 08/22/23 08:49 Diazepam 10 Mg/2 Ml Cartridge IVPUSH 08/22/23 08:46 2.5 mg STAT STA Administration Hydromorphone HCl 1 mg 08/22/23 09:00 08/22/23 09:15 Hydromorphone Hcl 1 Mg/Ml Syringe IVPUSH 08/22/23 09:01 1 mg ONCE ONE Administration Protocol Hydromorphone HCl 2 mg 08/22/23 10:09 08/22/23 10:23 Hydromorphone Hcl 2 Mg/Ml Vial IVPUSH 08/22/23 10:10 2 mg ONCE ONE Administration Protocol Hydromorphone HCl 2 mg 08/22/23 12:06 08/22/23 12:18 Hydromorphone Hcl 2 Mg/Ml Vial IVPUSH 08/22/23 12:07 2 mg ONCE ONE Administration Protocol Hydromorphone HCl 2 mg 08/22/23 13:45 08/22/23 14:05 Hydromorphone Hcl 2 Mg/Ml Vial IVPUSH 08/22/23 13:46 2 mg ONCE ONE Administration Protocol Medical Decision Making Medical Decision Making MDM Narrative: Patient is a 42 year old assigned male at with a history of multiple right shoulder dislocations presenting to the emergency department today with left shoulder pain after being struck by a branch. Patient's physical exam was as noted in the physical exam portion of this note. Patient's blood work was unremarkable. Patient's left shoulder x-ray showed evidence of possible scapular injury. Patient's left shoulder CT showed a significant scapular fracture. Patient's head and c-spine CTs were negative for any acute process. I spoke to the orthopedic team who recommended a sling and out patient follow up. Patient is having intractable pain that persists even after 2.5mg of Valium, an initial dose of 1mg dilaudid, and a follow up dose of 2mg of dilaudid. Will admit the patient for pain control. Patient's LUE was placed in a sling, without incident. Patient's PMS intact prior to and after sling placement. I consulted with my attending physician Dr. Albright who recommended admission for intractactable pain and continued monitoring. I spoke to the hospitalist team who declined to admit for intractable pain and continued monitoring secondary to high risk for pulmonary contusion. Patient will be signed out to Dr. Albright who will continue working with the hospitalist team for admission of this patient. I explained my physical exam findings as well as all test results to the patient and the patient's family at the bed side. I answered all questions asked by the patient and the patient's family at the bed side. Patient and the patient's family at the bed side verbalized agreement and understanding with this treatment plan and admission. Differential Diagnosis Differential Diagnoses: The differential diagnosis associated with the presentation includes Intractable pain Scapular fracture Admission/Observation Consideration of admission/observation: Escalation of care including admission/observation considered Patient to be admitted. Consult Healthcare Provider Management of the patient was discussed with: Hospitalist (refused to admit - see MDM Rationale portion of this note.) and [employer]er (spoke to the orthopedic team as noted in the MDM Rationale portion of this note.) Lab Data [facility] Lab Attestation statement: I reviewed the patient's lab results. My interpretation of these results are in the MDM Rationale portion of this note. 08/22/23 09:44 08/22/23 09:44 Labs: Lab Results 08/22/23 Range/Units 09:44 WBC 10.1 (4.8-10.8) X10*3/uL RBC 5.00 (4.60-5.80) X10*6/uL Hgb 14.5 (14.0-18.0) g/dl Hct 42.9 (42.0-52.0) % MCV 85.8 (80.0-98.0) fL MCH 29.0 (27.0-33.0) pg MCHC 33.8 (31.0-36.0) g/dl RDW 13.4 (11.0-16.0) % Plt Count 286 (160-400) X10*3/uL MPV 10.2 (9.4-12.4) fL Immature Gran % (Auto) 0.4 (0.0-0.4) % Neut % (Auto) 79.0 H (45-73) % Lymph % (Auto) 13.3 L (20-40) % Price % (Auto) 4.8 (2-11) % Eos % (Auto) 2.0 (0-4) % Baso % (Auto) 0.5 (0-2) % Lymph # (Auto) 1.4 (1.2-4.9) X10*3/uL Price # (Auto) 0.5 (0.1-1.2) X10*3/uL Eos # (Auto) 0.2 (0.0-0.4) X10*3/uL Baso # (Auto) 0.1 (0.0-0.2) X10*3/uL Abs Immat Gran (auto) 0.04 H (0.00-0.03) X10*3/uL Absolute Neuts (auto) 8.0 (2.0-8.3) x10*3/uL Absolute Nucleated RBC 0.000 (0.0-0.012) X10*3/uL Nucleated RBC % (auto) 0.0 (0.0-0.2) /100WBC PT 12.4 (11.1-13.3) SEC INR 1.0 (0.9-1.1) APTT 29.3 (26.0-36.8) SEC Sodium 139 (135-145) mmol/L Potassium 4.7 (3.3-5.1) mmol/L Chloride 107 (96-108) mmol/L Carbon Dioxide 26 (22-29) mmol/L Anion Gap 11 L (12-20) BUN 18 H (9-16) mg/dL Creatinine 0.78 (0.5-1.4) mg/dL Estim Creat Clear Calc 129.2 Estimated GFR > 60 Random Glucose 118 H (60-115) mg/dL Calcium 8.2 L D (8.4-10.2) mg/dL Magnesium 2.0 (1.6-2.6) mg/dL Total Bilirubin 0.7 (0.0-1.0) mg/dL AST 32 (5-37) U/L ALT 37 (0-40) U/L Alkaline Phosphatase 61 (39-117) U/L Total Protein 7.1 (6.5-8.0) g/dL Albumin 4.0 (3.5-5.0) g/dL Independent Interpretation I performed an independent interpretation of an: Plain X-Ray and CT Scan Interpretation: My interpretation is in agreement with the radiologist's impression of these imaging studies. - EXAMINATION: XR SHOULDER, LEFT CLINICAL INFORMATION: Pain. Injury. COMPARISON: None available. TECHNIQUE: Two views of the left shoulder. FINDINGS: There are 2 dense sclerotic lines and single longer radiolucent line questionable for fracture of the scapula. No clavicle or humerus fracture seen. Glenohumeral and acromioclavicular joints are normal-appearing. Visualized left lung is clear. There may be soft tissue swelling adjacent to the left shoulder. XR/XR shoulder LT min 2V IMPRESSION: Question left scapula fracture. A CT of the left shoulder has been ordered. Dictated By: Tish Stein MD Signed By: Electronically signed by Tish Stein MD 08/22/23 0927 - EXAMINATION: CT SHOULDER WITHOUT CONTRAST, LEFT CLINICAL INFORMATION: Left shoulder pain following injury. Question scapular fracture. COMPARISON: Left shoulder radiographs done earlier the same day. TECHNIQUE: Contiguous axial CT images of the left shoulder were obtained without contrast. Multiplanar reformats were provided and reviewed. 3-D reconstructions were obtained on an independent workstation with concurrent physician supervision and provided for review. FINDINGS: There is a mildly displaced and slightly comminuted fracture through the inferior scapular angle and extending proximally within the central aspect of the scapular body. The dominant oblique fracture line measures up to 9.5 cm in craniocaudal dimension with a central scapular fracture gap measuring up to 0.9 cm. The fracture gap along the inferior angle measures up to 0.3 cm. There is superior extension through the central aspect of the scapular spine as well as through the superior margin of the scapula where there is apex dorsal angulation. No extension of a fracture line to the glenoid articular surface. No additional fracture. No dislocation. No significant joint space narrowing or marginal osteophytes. No concerning lytic or blastic osseous lesion. The visualized muscles and tendons are grossly intact, however, evaluation is significantly limited on CT examination. No soft tissue mass or fluid collection. No axillary lymphadenopathy. The visualized left lung is clear. CT/CT shoulder LT wo IV con IMPRESSION: Mildly displaced and comminuted fracture of the scapular body extending from the superior margin inferiorly through the central aspect of the scapular spine as well as through the scapular body where it contacts the inferior angle. No extension to an articular surface. Dictated By: Yazan Chavez MD Signed By: Electronically signed by Yazan Chavez MD 08/22/23 1009 - EXAMINATION: CT HEAD WITHOUT CONTRAST CLINICAL INFORMATION: Blunt head trauma without loss of consciousness, significant head injury and posttraumatic headache. COMPARISON: None available. TECHNIQUE: Contiguous axial imaging was performed from the skull base to vertex without intravenous administration of contrast. This CT examination was performed using dose optimization techniques as appropriate, variously including the following: *Automated exposure control *Adjustment of mA and/or kV according to patient size (this includes techniques or standardized protocols for targeted exams where dose is matched to indication/reason for exam; i.e. extremities or head) *Use of iterative reconstruction technique DLP: 766 mGy-cm FINDINGS: Ventricles, sulci and cisterns are normal. There is no midline shift, no abnormal intra- or extra- axial fluid accumulation. Villalat and white matter differentiation is normal. Bone window images show no evidence of skull fracture. Bilateral ethmoid sinuses show marked mucosal thickening causing almost complete opacification, worse on the right side. Mild mucosal thickening is also seen at anterior wall of bilateral sphenoid sinuses. Right frontal sinus is not well pneumatized. CT/CT head/brain wo IV con IMPRESSION: 1. Normal CT scan of the brain. 2. No intracranial hemorrhage or skull fracture is seen. 3. No evidence of space occupying lesion could be found. 4. The current plain CT scan of the brain shows no diagnostic evidence of acute cerebral infarction. 5. Marked bilateral ethmoid sinusitis. Dictated By: Fahad Chavarria Signed By: Electronically signed by Fahad Chavarria 08/22/23 1120 - EXAMINATION: CT CERVICAL SPINE WITHOUT CONTRAST CLINICAL INFORMATION: Neck injury and pain. History of cervical fracture COMPARISON: None available. TECHNIQUE: Multiple 3.0 and 0.6 mm axial images were obtained from base of skull to T1 levels without IV contrast enhancement. Sagittal and coronal 2.0 mm bone window images were reconstructed from axial image data. This CT examination was performed using dose optimization techniques as appropriate, variously including the following: *Automated exposure control *Adjustment of mA and/or kV according to patient size (this includes techniques or standardized protocols for targeted exams where dose is matched to indication/reason for exam; i.e. extremities or head) *Use of iterative reconstruction technique DLP: 566 mGy-cm FINDINGS: C1/C2: Bony structures are intact with normal alignment. There is no spinal stenosis. C2/C3: Bony structures are intact with normal alignment. There is no spinal stenosis. There is mild asymmetric left C2/C3 neuroforaminal stenosis. Bilateral apophyseal joints are intact with normal alignment. C3/C4: Bony structures are intact with mild kyphosis. There is no spinal stenosis. Bilateral C3/C4 neuroforamina are patent. Bilateral apophyseal joints are intact with normal alignment. C4/C5: C4-C5 ACDF, with intervertebral spacer, fixation with anterior metallic plate and cortical screws is seen. There is no spinal stenosis. There is mild asymmetric left C4/C5 neuroforaminal stenosis. Bilateral apophyseal joints are intact with normal alignment. C5/C6: C5-C6 ACDF, with intervertebral spacer, fixation with anterior metallic plate and cortical screws is seen. There is no spinal stenosis. Bilateral C5/C6 neuroforamina are patent. Bilateral apophyseal joints are intact with normal alignment. C6/C7: Bony structures are intact with normal alignment. Large left anterior C6-C7 bridging syndesmophytes are present. There is mild decrease in intervertebral disc height. There is no spinal stenosis. Bilateral C6/C7 neuroforamina are mildly stenosed. A sclerotic bone island is seen at the left lateral border of C7 vertebral body. Bilateral apophyseal joints are intact with normal alignment. C7/T1: Bony structures are intact with normal alignment. There is marked loss of intervertebral disc height. Anterior superior T1 limbus vertebra is seen. There is no spinal stenosis. Bilateral C7/T1 neuroforamina are mildly stenosed. Bilateral apophyseal joints are intact with normal alignment. CT/CT cervical spine wo IV con IMPRESSION: 1. No evidence of acute fracture or dislocation. 2. Status post C4-C6 ACDF, with intervertebral spacers, fixation with anterior metallic plate and cortical screws. 3. Mild asymmetric left C2/C3, left C4/C5, bilateral C6/C7 and bilateral C7/T1 neuroforaminal stenosis. 4. Large left anterior C6-C7 bridging syndesmophytes. Dictated By: Fahad Chavarria Signed By: Electronically signed by Fahad Chavarria 08/22/23 4100 Radiology Impression Discussion of test interpretation with radiology: I have reviewed the radiologist's reading. Independent Historian Clinical information obtained from an independent historian. History obtained from or confirmed by: Other (patient's family at the bed side provided additional history and confirmed the history provided by the patient.) Procedures Orthopedic Splinting/Casting Injury #1: Side: left Upper Extremity Injury Location: shoulder Upper Extremity Immobilizer: sling/shoulder immobilizer Critical Care Time Critical Care Time Critical Care Time: Yes Total Critical Care Time: 131 Attestation: I spent 131 minutes of Critical Care Time with this patient. This does not include time spent on separately reported billable procedures. Discharge Plan Discharge Clinical Impression: Closed left scapular fracture, Intractable pain Patient Disposition: Admitted As Inpatient Print Language: [place]
--- NOTE | 2023-08-22 08:45 | PC.NURSE ---
informed German RN of stated weight by pt and will need accurate bed scale weight for weight based med administration
[2023-08-22] MEDS: diazePAM 10 MG/2 ML CARTRIDGE 2.5 MG IVPUSH (08:49)
[2023-08-22] MEDS: HYDROmorphone HCl 1 MG/ML SYRINGE IVPUSH ×2 (09:15→20:20)
--- NOTE | 2023-08-22 09:45 | PC.NURSE ---
family at bedside, ice packs to front and back of shoulder/scapula/l upper chest/back
[2023-08-22 09:50] LABS: MANUAL DIFF FLAG NO
[2023-08-22 09:51] LABS: Basophils Absolute Auto 0.1 X10*3/uL (0.0-0.2); Basophils Percent Auto 0.5 % (0-2); Eosinophils Absolute Auto 0.2 X10*3/uL (0.0-0.4); Hematocrit 42.9 % (42.0-52.0); Hemoglobin 14.5 g/dl (14.0-18.0); Imm Gran Abs Auto 0.04 X10*3/uL (0.00-0.03); Imm Gran Pct Auto 0.4 % (0.0-0.4); Lymphocytes Absolute Auto 1.4 X10*3/uL (1.2-4.9); Lymphocytes Percent Auto 13.3 % (20-40); Mean Corpuscular HGB Conc 33.8 g/dl (31.0-36.0); Mean Corpuscular Volume 85.8 fL (80.0-98.0); Mean Platelet Volume 10.2 fL (9.4-12.4); Monocytes Absolute Auto 0.5 X10*3/uL (0.1-1.2); Monocytes Percent Auto 4.8 % (2-11); Platelet Count 286 X10*3/uL (160-400); Red Cell Distribution Width 13.4 % (11.0-16.0); White Blood Count 10.1 X10*3/uL (4.8-10.8)
[2023-08-22 10:05] LABS: Alanine Aminotransferase 37 U/L (0-40); Alkaline Phosphatase 61 U/L (39-117); Anion Gap 11 (12-20); Aspartate Amino Transferase 32 U/L (5-37); Bilirubin Total 0.7 mg/dL (0.0-1.0); Blood Urea Nitrogen 18 mg/dL (9-16); Calcium 8.2 mg/dL (8.4-10.2); Carbon Dioxide 26 mmol/L (22-29); Chloride 107 mmol/L (96-108); Creatinine Clr Calc Pharmacy 129.2; Estimated Glomerular Filt Rate > 60; Glucose Random 118 mg/dL (60-115); Potassium 4.7 mmol/L (3.3-5.1); Sodium 139 mmol/L (135-145); Total Protein 7.1 g/dL (6.5-8.0)
[2023-08-22 10:06] LABS: Prothrombin Time 12.4 SEC (11.1-13.3)
[2023-08-22 10:09] LABS: Partial Thromboplastin Time 29.3 SEC (26.0-36.8)
[2023-08-22] MEDS: HYDROmorphone HCl 2 MG/ML VIAL IVPUSH ×3 (10:23→14:05)
--- NOTE | 2023-08-22 10:34 | PC.NURSE ---
ALERT, PAIN IMPROVED AFTER DILAUDID 2MG, SLING APPLIED AND ICE REAPPLIED, APPEARS MORE COMFORTABLE ANDF ABLE TO MOVE AND REPOSITION SELF IN BED
--- NOTE | 2023-08-22 11:38 | PC.NURSE ---
pt reports significant pain improvement, alert, speech clear, skin wpd, talking with family
--- NOTE | 2023-08-22 12:40 | PHA.MEDREC ---
Pharmacy Consult ? Medication Reconciliation Pharmacy has completed the medication reconciliation. Patient reports getting Remicade monthly but unsure of dose. No other home meds
[2023-08-22] MEDS: fentaNYL citrate/PF 100 MCG/2 ML VIAL IVPUSH (16:49)
[2023-08-22] MEDS: ondansetron HCL 4 MG/2 ML VIAL IVPUSH ×2 (16:50→22:55)
[2023-08-22] MEDS: iohexoL 350 MG/ML 100 ML INFUS..BTL IV (16:59)
--- NOTE | 2023-08-22 17:54 | P.HPHOSP_ITS ---
History of Present Illness Date of Service: 08/22/23 Attending physician on admission: [facility] Chief Complaint: intractable pain, scapular fracture 42-year-old male with history of ulcerative colitis on Remicade infusions and remote history of polysubstance abuse in remission (last use crack cocaine and inhaled heroin 5 years ago) presented to the ED earlier today after assisting his friend with yd work. He states they were not paying attention and a large branch fell and hit him in the back knocking him to the ground and knocked the wind out of him. He reports immediate pain in the left parascapular area. He denies any head injury or loss of consciousness. No lightheadedness. He is reporting some nausea but denies any vomiting. While in the ED, patient mildly hypertensive likely secondary to pain with blood pressure controlled on admission at 128/71. Vital signs otherwise stable. Hematology studies unremarkable. Renal function and electrolyte levels normal. Head CT negative for any acute intracranial abnormality. Cervical spine negative for any acute osseous abnormality. CT of the left shoulder shows a mildly displaced and comminuted fracture of the scapular body extending from the superior margin inferiorly through the central aspect of the scapular spine as well as through the scapular body where it contacts the inferior angle. No extension to the articular surface. Chest CT appears negative for any pulmonary contusion. In the ED, has required multiple doses of IV Dilaudid, morphine for adequate pain control. Patient is still reporting pain of 8/10 in the left periscapular area. Orthopedics was consulted and recommends immobilization with sling and pain management. He does not recommend surgery at this time. Patient will be admitted for further management of intractable pain secondary to left scapular fracture. Review of Systems 2 Review of Systems: General: No fevers, malaise, unintentional weight loss HEENT: No blurred vision, diplopia. No sore throat, nasal congestion, rhinorrhea, sinus pain, ear pain Cardiovascular: No chest pain, palpitations, or leg edema Respiratory: No shortness of breath, wheezing, cough GI: +nausea. No abdominal pain, vomiting, diarrhea, constipation, melena, hematochezia : No dysuria, hematuria, increased urinary frequency, decreased urinary output MSK: No myalgia, back pain. +scapular pain Neuro: No headaches, weakness, paresthesias Skin: No rashes or lesions PMFSH Medical History History of substance abuse Ulcerative colitis Social History Unable to assess alcohol history related to: Unknown Patient Tobacco Use Status: Never used Tobacco Use of substances other than those prescribed or required for medical reasons: No Advance Directives: Yes Advance Directives Information Provided: Yes Advance Directives on File: No Nutrition Risks: No Nutritional Risk Meds Allergies Allergy/AdvReac Type Severity Reaction Status Date / Time No Known Allergies Allergy Verified 08/22/23 08:39 [No Known Allergies*] Active Medications: Current Medications Acetaminophen (Acetaminophen 325 Mg Tablet) 650 mg PO Q6H PRN PRN Reason: Pain, Mild (Pain Scale 1-3) Hydromorphone HCl (Hydromorphone Hcl 1 Mg/Ml Syringe) 1 mg IVPUSH Q3H PRN; Protocol PRN Reason: Pain, Severe (Pain Scale 7-10) Lidocaine (Lidocaine 4 % Patch Adh..Patch) 1 patch TRANSDERMA DAILY [facility]; Protocol Ondansetron HCl (Ondansetron Hcl 4 Mg/2 Ml Vial) 4 mg IVPUSH Q8H PRN PRN Reason: Nausea and Vomiting Oxycodone HCl (Oxycodone Hcl Immed Release 5 Mg Tablet) 10 mg PO Q4H PRN PRN Reason: Pain, Moderate(Pain Scale 4-6) Senna (Sennosides 8.6 Mg Tablet) 17.2 mg PO BEDTIME PRN PRN Reason: Constipation Sodium Chloride (0.9 % Sodium Chloride Flush 3 Ml Syringe) 3 ml IVFLUSH QSHIFT [facility] Physical Exam 2 Vital Signs and Narrative: Vital Signs: Last Vital Signs Temp 96.9 F 08/22/23 08:36 Pulse 55 08/22/23 16:47 Resp 16 08/22/23 16:47 BP 128/71 08/22/23 16:47 Pulse Ox 95 08/22/23 16:47 O2 Del Method Room Air 08/22/23 16:47 BMI result Body Mass Index 22.4 Constitutional - Awake and Alert, No apparent distress Eyes - PERRLA, EOMI Cardiovascular - S1S2, RRR, No edema. 2+ redial pulses Respiratory - Normal lung expansion, Normal respiratory effort, No respiratory distress, CTA bilaterally Gastrointestinal - NT / ND; +BS; No rebound or guarding Extremities - no calf tenderness bilaterally, no swelling Musculoskeletal - LUE immobilized in sling Skin - Warm/Dry Neurological - Alert & oriented x3, 5/5 career services assistant strength bilaterally, sensation in tact Psychological - Appropriate affect Results Labs 08/23/23 04:25 08/23/23 04:25 Labs: Laboratory Results - last 24 hr 08/22/23 09:44 MCV 85.8 MCH 29.0 MCHC 33.8 RDW 13.4 Plt Count 286 MPV 10.2 Immature Gran % (Auto) 0.4 Neut % (Auto) 79.0 H Lymph % (Auto) 13.3 L Sully % (Auto) 4.8 Eos % (Auto) 2.0 Baso % (Auto) 0.5 Lymph # (Auto) 1.4 Sully # (Auto) 0.5 Eos # (Auto) 0.2 Baso # (Auto) 0.1 Abs Immat Gran (auto) 0.04 H Absolute Neuts (auto) 8.0 Absolute Nucleated RBC 0.000 Nucleated RBC % (auto) 0.0 PT 12.4 INR 1.0 APTT 29.3 Anion Gap 11 L Estim Creat Clear Calc 129.2 Estimated GFR > 60 Random Glucose 118 H Calcium 8.2 L D Magnesium 2.0 Total Bilirubin 0.7 AST 32 ALT 37 Alkaline Phosphatase 61 Total Protein 7.1 Albumin 4.0 Imaging Radiologist's Impressions: Impressions Shoulder X-Ray 08/22/23 08:49 IMPRESSION: Question left scapula fracture. A CT of the left shoulder has been ordered. Cervical Spine CT 08/22/23 09:55 IMPRESSION: 1. No evidence of acute fracture or dislocation. 2. Status post C4-C6 ACDF, with intervertebral spacers, fixation with anterior metallic plate and cortical screws. 3. Mild asymmetric left C2/C3, left C4/C5, bilateral C6/C7 and bilateral C7/T1 neuroforaminal stenosis. 4. Large left anterior C6-C7 bridging syndesmophytes. Head CT 08/22/23 09:55 IMPRESSION: 1. Normal CT scan of the brain. 2. No intracranial hemorrhage or skull fracture is seen. 3. No evidence of space occupying lesion could be found. 4. The current plain CT scan of the brain shows no diagnostic evidence of acute cerebral infarction. 5. Marked bilateral ethmoid sinusitis. Shoulder CT 08/22/23 09:55 IMPRESSION: Mildly displaced and comminuted fracture of the scapular body extending from the superior margin inferiorly through the central aspect of the scapular spine as well as through the scapular body where it contacts the inferior angle. No extension to an articular surface. Assessment and Plan (1) Intractable pain: Status: Acute (2) Closed left scapular fracture: Status: Acute Plan 42-year-old male with history of ulcerative colitis on Remicade infusions and remote history of polysubstance abuse in remission (last use crack cocaine and inhaled heroin 5 years ago) admitted for further management of intractable pain secondary to left scapular fracture. # left scapular fracture with intractable pain -per orthopedic surgery, no surgical intervention at this time -continue with pain management with IV Dilaudid and oxycodone 10 mg on pain scale p.r.n. -pain management consult for possible nerve block -orthopedic surgery consult -PT eval -continue immobilization with sling per Orthopedic surgery # history of polysubstance abuse -remote history of crack cocaine and heroin use in remission x5 years -not on MAT. Would like like to speak with addiction medicine given concerns about high dose narcotics and relapse. However, does not desire MAT. Addiction med consult placed -patient desires HIV and hepatitis-C testing -urine drug screen pending #UC -stable, no acute flare DVT prophylaxis- scps early ambulation full code Patient requires inpatient stay at least 2 midnights for management of intractable pain secondary to closed left scapular fracture requiring IV pain management in patient with remote history of drug abuse Quality Stroke Does the patient have a stroke diagnosis?: No VTE Prior VTE?: No VTE Risk Level:: Medical - moderate - high VTE Device Contraindication: Treatment Not Indicated VTE Drug Contraindication: N/A - Med Ordered
[2023-08-22] MEDS: Lidocaine 4 % Patch ADH..PATCH 1 PATCH TRANSDERMA (18:41)
--- NOTE | 2023-08-22 19:15 | PC.NURSE ---
Assumed care of pt. Pt sitting upright on stretcher, eating ice cream. no acute distress noted at this time. Pending admission, continuing plan of care.
--- NOTE | 2023-08-22 19:46 | MHC.EDTECH ---
Assumed care at 1900
--- NOTE | 2023-08-22 20:41 | MHC.EDTECH ---
Transferred care to RAHEL Aiken at 20:15
[2023-08-23 00:50] VITALS: BP 128/74; PULSE 54; RESP 16; TEMP 36.4; O2SAT 97
--- NOTE | 2023-08-23 00:55 | MHC.EDTECH ---
THIS PCT ASSUMED CARE OF PATIENT AT 2300 ,VITALS TAKEN ,THIS PCT TOLD PATIENT THAT WE HAVE TO CHANGE INTO HOSPITAL GOWN ,PT SAID HE WAS TOLD BY PREVIOUS STAFF THAT HE DID NOT WANT TO CHANGE ,AND HE WAS COMFORTABLE ,RN ABEL IS AWARE .
[2023-08-23 03:08] LABS: Amphetamine Screen Urine Not Detected (Not Detect); Barbiturates, Urine Not Detected (Not Detect); Benzodiazepines Screen Urine Not Detected (Not Detect); Cannabinoid Screen Urine Not Detected (Not Detect); Cocaine Screen Urine Not Detected (Not Detect); Fentanyl, urine POSITIVE (Not Detect); Opiate Screen Urine Not Detected (Not Detect); Phencyclidine Screen Urine Not Detected (Not Detect)
[2023-08-23 04:12] VITALS: BP 116/65; PULSE 55; RESP 16; TEMP 36.6; O2SAT 97
[2023-08-23] MEDS: HYDROmorphone HCl 1 MG/ML SYRINGE IVPUSH ×3 (04:28→11:05)
[2023-08-23 06:53] LABS: Basophils Absolute Auto 0.1 X10*3/uL (0.0-0.2); Basophils Percent Auto 0.6 % (0-2); Eosinophils Absolute Auto 0.2 X10*3/uL (0.0-0.4); Eosinophils Percent Auto 2.6 % (0-4); Hematocrit 40.9 % (42.0-52.0); Hemoglobin 13.9 g/dl (14.0-18.0); Imm Gran Abs Auto 0.02 X10*3/uL (0.00-0.03); Imm Gran Pct Auto 0.3 % (0.0-0.4); Lymphocytes Absolute Auto 2.1 X10*3/uL (1.2-4.9); Lymphocytes Percent Auto 27.1 % (20-40); MANUAL DIFF FLAG NO; Mean Corpuscular Hemoglobin 29.1 pg (27.0-33.0); Mean Corpuscular Volume 85.6 fL (80.0-98.0); Mean Platelet Volume 10.5 fL (9.4-12.4); Monocytes Absolute Auto 0.7 X10*3/uL (0.1-1.2); Monocytes Percent Auto 9.5 % (2-11); Neutrophils Absolute Auto 4.7 x10*3/uL (2.0-8.3); Neutrophils Percent Auto 59.9 % (45-73); Platelet Count 308 X10*3/uL (160-400); Red Blood Count 4.78 X10*6/uL (4.60-5.80); Red Cell Distribution Width 13.5 % (11.0-16.0); White Blood Count 7.8 X10*3/uL (4.8-10.8)
[2023-08-23 06:56] VITALS: BP 120/50; PULSE 51; RESP 16; TEMP 36.8; O2SAT 97
[2023-08-23 07:20] LABS: Anion Gap 11 (12-20); Blood Urea Nitrogen 11 mg/dL (9-16); Calcium 8.8 mg/dL (8.4-10.2); Carbon Dioxide 25 mmol/L (22-29); Chloride 107 mmol/L (96-108); Estimated Glomerular Filt Rate > 60; Glucose Random 112 mg/dL (60-115); Potassium 3.9 mmol/L (3.3-5.1); Sodium 139 mmol/L (135-145)
[2023-08-23] MEDS: ondansetron HCL 4 MG/2 ML VIAL IVPUSH (07:48)
[2023-08-23] MEDS: 0.9 % Sodium Chloride Flush 3 ML SYRINGE IVFLUSH (07:53)
[2023-08-23] MEDS: Lidocaine 4 % Patch ADH..PATCH 1 PATCH TRANSDERMA (07:54)
--- NOTE | 2023-08-23 08:20 | P.DS_ITS ---
DS: Providers Provider Date of Service: 08/23/23 Date of admission: 08/22/23 17:48 Primary care physician: Kali Lemus MD Consults: 08/22/23 17:51 Consult to Orthopedics Routine Consulting Provider: [facility] Reason for consultation: scapular fracture 08/22/23 18:01 Consult to Pain Management Routine Consulting Provider: [facility] Pain Management Reason for consultation: intractable pain, left scapular fracture 08/22/23 18:05 Addiction Medicine Routine Consulting Provider: Addiction Covering Reason for consultation: intracble pain scapular fx. hx heroin/crack use 5 years remission. pt reque DS: Diagnosis Discharge Diagnosis (1) Intractable pain: Status: Acute (2) Closed left scapular fracture: Status: Acute DS: Summary Hospital Course Hospital Course: Chief Complaint: intractable pain, scapular fracture 42-year-old male with history of ulcerative colitis on Remicade infusions and remote history of polysubstance abuse in remission (last use crack cocaine and inhaled heroin 5 years ago) presented to the ED earlier today after assisting his friend with yd work. He states they were not paying attention and a large branch fell and hit him in the back knocking him to the ground and knocked the wind out of him. He reports immediate pain in the left parascapular area. He denies any head injury or loss of consciousness. No lightheadedness. He is reporting some nausea but denies any vomiting. While in the ED, patient mildly hypertensive likely secondary to pain with blood pressure controlled on admission at 128/71. Vital signs otherwise stable. Hematology studies unremarkable. Renal function and electrolyte levels normal. Head CT negative for any acute intracranial abnormality. Cervical spine negative for any acute osseous abnormality. CT of the left shoulder shows a mildly displaced and comminuted fracture of the scapular body extending from the superior margin inferiorly through the central aspect of the scapular spine as well as through the scapular body where it contacts the inferior angle. No extension to the articular surface. Chest CT appears negative for any pulmonary contusion. In the ED, has required multiple doses of IV Dilaudid, morphine for adequate pain control. Patient is still reporting pain of 8/10 in the left periscapular area. Orthopedics was consulted and recommends immobilization with sling and pain management. He does not recommend surgery at this time. Patient will be admitted for further management of intractable pain secondary to left scapular fracture. Hospital course: Patient was observed overnight due to intractable pain that was treated with IV dilaudid and later started on oxycodone, CT chest with contrasted showed no pulmonary contusion. Ortho recommends sling Time Attestation Discharge Coordination Time (in mins): 35 Quality: Safe Use of Opioids Does Pt have an Active Cancer Diagnosis on the Problem List?: No Quality: Stroke Does the patient have a stroke diagnosis?: No Physical Exam Vital Signs: Vital Signs: Last Vital Signs Temp 98.2 F 08/23/23 06:56 Pulse 51 08/23/23 06:56 Resp 16 08/23/23 06:56 BP 120/50 L 08/23/23 06:56 Pulse Ox 97 08/23/23 06:56 O2 Del Method Room Air 08/23/23 06:56 BMI result Body Mass Index 22.4 General: AO X 3, no acute distress Resp: CTA bilateral CVS: S1,S2,RRR GI: +BS, NT, no distention Skin: No rash MsK; has left lar sking Neuro: motor grossly intact Psych: appropriate affect DS: Data Data Completed and Pending Labs on day of discharge: Laboratory Results - last 24 hr 08/22/23 08/23/23 08/23/23 09:44 02:54 04:25 WBC 10.1 7.8 RBC 5.00 4.78 Hgb 14.5 13.9 L Hct 42.9 40.9 L MCV 85.8 85.6 MCH 29.0 29.1 MCHC 33.8 34.0 RDW 13.4 13.5 Plt Count 286 308 MPV 10.2 10.5 Immature Gran % (Auto) 0.4 0.3 Neut % (Auto) 79.0 H 59.9 Lymph % (Auto) 13.3 L 27.1 Schleicher % (Auto) 4.8 9.5 Eos % (Auto) 2.0 2.6 Baso % (Auto) 0.5 0.6 Lymph # (Auto) 1.4 2.1 Schleicher # (Auto) 0.5 0.7 Eos # (Auto) 0.2 0.2 Baso # (Auto) 0.1 0.1 Abs Immat Gran (auto) 0.04 H 0.02 Absolute Neuts (auto) 8.0 4.7 Absolute Nucleated RBC 0.000 0.000 Nucleated RBC % (auto) 0.0 0.0 PT 12.4 INR 1.0 APTT 29.3 Sodium 139 139 Potassium 4.7 3.9 Chloride 107 107 Carbon Dioxide 26 25 Anion Gap 11 L 11 L BUN 18 H 11 Creatinine 0.78 0.71 Estim Creat Clear Calc 129.2 142.0 Estimated GFR > 60 > 60 Random Glucose 118 H 112 Calcium 8.2 L D 8.8 D Magnesium 2.0 Total Bilirubin 0.7 AST 32 ALT 37 Alkaline Phosphatase 61 Total Protein 7.1 Albumin 4.0 Urine Opiates Screen Not Detected Urine Fentanyl Screen POSITIVE H Ur Barbiturates Screen Not Detected Ur Phencyclidine Scrn Not Detected Ur Amphetamines Screen Not Detected U Benzodiazepines Scrn Not Detected Urine Cocaine Screen Not Detected U Marijuana (THC) Screen Not Detected Discharge Plan Discharge Anticipated Discharge Date/Time: 08/23/23 08:21 Patient Disposition: Home, Self-Care Discharge Diagnosis: Left scapula fracture Referrals: Kali Lemus MD [Primary Care Provider] - 1 Week Diet: Advance to usual diet Activity on Discharge: As tolerated Stand Alone Forms: Patient Portal Discharge page Print Language: Singaporean Care Plan Goals: recovery from left scapula fracture Health Concerns: left scapular fracture pain due to scapular fracture Plan of Treatment: take oxycodone as recommended and follow up with Orthopedic surgery and your primary care physician within a week, call for appointment. Assessment: See above
[2023-08-23 08:28] LABS: HIV AB/AG Nonreactive (Nonreactive); HIV Num 1 0.25 S/CO (0.00-0.99)
--- NOTE | 2023-08-23 12:13 | HO.ADDICTCON ---
History of Present Illness Date of Service: 08/23/23 Chief Complaint: scapular fracture, intractable pain Reason for Consult: [employer] intermediary recovery ---question regarding pain management Sources of Information: patient interviewed and chart reviewed HPI Narrative: Patient is a 42 year old male currently medically admitted following an injury resulting in fracture of his scapula. Patient requested consult as he has been in recovery for over 5 years and was very concerned about his need for pain medications. Seen in ED, while awaiting transfer to [facility] floor. GF present at bedside. He reports that he has been free from any substance use fo rover 5 years. In that time he has fractured his wrist and did not require pain medication--he was able to manage pain in other ways. He feels that his current injury is challenging him as he has required opiate pain medication to get any type of relief. He shared that his daughter was very concerned about his recovery as well. This technical writer and editor validated patients concerns and provided some guidance around making a plan for medications once at home. Reviewed recovery supports, reviewed appropriateness and importance (in some cases) of adequate pain management as a way to ensure healing occurs. Discussed taper plan for medications. Discussed differentiating btwn discomfort and pain. Discussed other modalities to address pain Assured patient time in recovery is not erased as a result of this -patient verbalized concern about this. Review of Systems Constitutional: Reports as per HPI Diagnostics Vital Signs (24Hr): Vital Signs - 24 hr 08/22/23 12:21 08/22/23 12:35 08/22/23 14:05 Temperature Pulse Rate 61 59 57 Respiratory Rate 16 18 19 Blood Pressure 162/98 H 143/85 H 137/96 H Pulse Oximetry 98 98 98 Oxygen Delivery Method Room Air Room Air Room Air 08/22/23 16:47 08/22/23 20:00 08/23/23 00:50 Temperature 98.1 F 97.5 F Pulse Rate 55 56 54 Respiratory Rate 16 16 16 Blood Pressure 128/71 134/76 128/74 Pulse Oximetry 95 95 97 Oxygen Delivery Method Room Air Room Air Room Air 08/23/23 04:12 08/23/23 06:56 Temperature 97.9 F 98.2 F Pulse Rate 55 51 Respiratory Rate 16 16 Blood Pressure 116/65 120/50 L Pulse Oximetry 97 97 Oxygen Delivery Method Room Air Room Air BMI result Body Mass Index 22.4 Labs 08/23/23 04:25 08/23/23 04:25 Labs: Laboratory Results - last 48 hr 08/22/23 08/22/23 08/23/23 09:44 18:27 02:54 WBC 10.1 RBC 5.00 Hgb 14.5 Hct 42.9 MCV 85.8 MCH 29.0 MCHC 33.8 RDW 13.4 Plt Count 286 MPV 10.2 Immature Gran % (Auto) 0.4 Neut % (Auto) 79.0 H Lymph % (Auto) 13.3 L [place] % (Auto) 4.8 Eos % (Auto) 2.0 Baso % (Auto) 0.5 Lymph # (Auto) 1.4 [place] # (Auto) 0.5 Eos # (Auto) 0.2 Baso # (Auto) 0.1 Abs Immat Gran (auto) 0.04 H Absolute Neuts (auto) 8.0 Absolute Nucleated RBC 0.000 Nucleated RBC % (auto) 0.0 PT 12.4 INR 1.0 APTT 29.3 Sodium 139 Potassium 4.7 Chloride 107 Carbon Dioxide 26 Anion Gap 11 L BUN 18 H Creatinine 0.78 Estim Creat Clear Calc 129.2 Estimated GFR > 60 Random Glucose 118 H Calcium 8.2 L D Magnesium 2.0 Total Bilirubin 0.7 AST 32 ALT 37 Alkaline Phosphatase 61 Total Protein 7.1 Albumin 4.0 Urine Opiates Screen Not Detected Urine Fentanyl Screen POSITIVE H Ur Barbiturates Screen Not Detected Ur Phencyclidine Scrn Not Detected Ur Amphetamines Screen Not Detected U Benzodiazepines Scrn Not Detected Urine Cocaine Screen Not Detected U Marijuana (THC) Screen Not Detected HIV 1&2 Ab/P24 Ag 4thGn Nonreactive 08/23/23 04:25 WBC 7.8 RBC 4.78 Hgb 13.9 L Hct 40.9 L MCV 85.6 MCH 29.1 MCHC 34.0 RDW 13.5 Plt Count 308 MPV 10.5 Immature Gran % (Auto) 0.3 Neut % (Auto) 59.9 Lymph % (Auto) 27.1 [place] % (Auto) 9.5 Eos % (Auto) 2.6 Baso % (Auto) 0.6 Lymph # (Auto) 2.1 [place] # (Auto) 0.7 Eos # (Auto) 0.2 Baso # (Auto) 0.1 Abs Immat Gran (auto) 0.02 Absolute Neuts (auto) 4.7 Absolute Nucleated RBC 0.000 Nucleated RBC % (auto) 0.0 PT INR APTT Sodium 139 Potassium 3.9 Chloride 107 Carbon Dioxide 25 Anion Gap 11 L BUN 11 Creatinine 0.71 Estim Creat Clear Calc 142.0 Estimated GFR > 60 Random Glucose 112 Calcium 8.8 D Magnesium Total Bilirubin AST ALT Alkaline Phosphatase Total Protein Albumin Urine Opiates Screen Urine Fentanyl Screen Ur Barbiturates Screen Ur Phencyclidine Scrn Ur Amphetamines Screen U Benzodiazepines Scrn Urine Cocaine Screen U Marijuana (THC) Screen HIV 1&2 Ab/P24 Ag 4thGn Imaging Radiology Impressions: ITS Impressions Shoulder X-Ray 08/22/23 08:49 IMPRESSION: Question left scapula fracture. A CT of the left shoulder has been ordered. Cervical Spine CT 08/22/23 09:55 IMPRESSION: 1. No evidence of acute fracture or dislocation. 2. Status post C4-C6 ACDF, with intervertebral spacers, fixation with anterior metallic plate and cortical screws. 3. Mild asymmetric left C2/C3, left C4/C5, bilateral C6/C7 and bilateral C7/T1 neuroforaminal stenosis. 4. Large left anterior C6-C7 bridging syndesmophytes. Head CT 08/22/23 09:55 IMPRESSION: 1. Normal CT scan of the brain. 2. No intracranial hemorrhage or skull fracture is seen. 3. No evidence of space occupying lesion could be found. 4. The current plain CT scan of the brain shows no diagnostic evidence of acute cerebral infarction. 5. Marked bilateral ethmoid sinusitis. Shoulder CT 08/22/23 09:55 IMPRESSION: Mildly displaced and comminuted fracture of the scapular body extending from the superior margin inferiorly through the central aspect of the scapular spine as well as through the scapular body where it contacts the inferior angle. No extension to an articular surface. Chest CT 08/22/23 17:17 IMPRESSION: 1. Comminuted fracture of the left scapula involving the scapular blade, multiple fragments mildly displaced. 2. No CT evidence of associated vascular injury. 3. No lung mass or suspicious spiculated nodules, there are few scattered tiny nonspecific lung nodular densities measuring up to 4 mm or less. According to the UPDATED 2017 Fleischner Society recommendations, the advised follow-up imaging for solid nodules <6 mm in the middle/lower lobes is no routine follow up. Mental Status Exam Mental Status Exam Patient Appearance: Well Grooomed and Appropriate Level of Consciousness: Awake, Appropriate and Alert Patient Behavior: Appropriate Mood Description: Anxious Affect Description: Anxious Speech Pattern: Clear Thought Process: Intact Thought Content: positive for Intact Judgement: Good Medications Medications Current Medications Acetaminophen (Acetaminophen 325 Mg Tablet) 650 mg PO Q6H PRN PRN Reason: Pain, Mild (Pain Scale 1-3) Hydromorphone HCl (Hydromorphone Hcl 1 Mg/Ml Syringe) 1 mg IVPUSH Q3H PRN; Protocol PRN Reason: Pain, Severe (Pain Scale 7-10) Last Admin: 08/23/23 11:05 Dose: 1 mg Lidocaine (Lidocaine 4 % Patch Adh..Patch) 1 patch TRANSDERMA DAILY [facility]; Protocol Last Admin: 08/23/23 07:54 Dose: 1 patch Ondansetron HCl (Ondansetron Hcl 4 Mg/2 Ml Vial) 4 mg IVPUSH Q8H PRN PRN Reason: Nausea and Vomiting Last Admin: 08/23/23 07:48 Dose: 4 mg Oxycodone HCl (Oxycodone Hcl Immed Release 5 Mg Tablet) 10 mg PO Q4H PRN PRN Reason: Pain, Moderate(Pain Scale 4-6) Senna (Sennosides 8.6 Mg Tablet) 17.2 mg PO BEDTIME PRN PRN Reason: Constipation Sodium Chloride (0.9 % Sodium Chloride Flush 3 Ml Syringe) 3 ml IVFLUSH QSHIFT [facility] Last Admin: 08/23/23 07:53 Dose: 3 ml Allergies Allergies Allergy/AdvReac Type Severity Reaction Status Date / Time No Known Allergies Allergy Verified 08/22/23 08:39 [No Known Allergies*] Assessment & Plan Assessment & Plan (1) Closed left scapular fracture: Status: Acute Code(s): S42.102A - Fracture of unspecified part of scapula, left shoulder, initial encounter for closed fracture Assessment and Plan: discussed taper plan and including loved ones in this plan for ongoing support encouraged patient to discuss pain management plan with attending provider will provide with CCC information should patient have any questions regarding KARLEE once discharged Total time managing care of this patient today _35___ minutes. PMFSH Past Medical History Medical History History of substance abuse Ulcerative colitis Social History Social History Unable to assess alcohol history related to: Unknown Patient Tobacco Use Status: Never used Tobacco Advance Directives Date on File: 08/23/23
[2023-08-23] MEDS: Acetaminophen 325 MG TABLET 650 MG PO (12:19)
--- NOTE | 2023-08-23 13:44 | MHC.CM.PN ---
Patient left [facility] prior to being seen by case management.
--- NOTE | 2023-08-23 15:11 | PM.CNOR ---
History of Present Illness HPI Consult date: 08/23/23 Chief complaint: scapular fracture, intractable pain Narrative: 42 yo male presented to the ED after a tree branch fell onto his back. He felt immediate left shoulder blade pain. Upon x-rays and ct scan in the ED he was found to have a scapular fracture that did not involve the intraarticular joint space. He was placed in a sling. He was admitted to the medicine service for pain management with orthopedic consult. Review of Systems Review of Systems: Yes all other systems are reviewed and are negative [facility] Past Medical History Medical History History of substance abuse Ulcerative colitis Social History Social History Unable to assess alcohol history related to: Unknown Patient Tobacco Use Status: Never used Tobacco Advance Directives Date on File: 08/23/23 Meds Allergies Allergy/AdvReac Type Severity Reaction Status Date / Time No Known Allergies Allergy Verified 08/22/23 08:39 [No Known Allergies*] Physical Exam Vital Signs: Vital Signs: Last Vital Signs Temp 98.2 F 08/23/23 06:56 Pulse 51 08/23/23 06:56 Resp 16 08/23/23 06:56 BP 120/50 L 08/23/23 06:56 Pulse Ox 97 08/23/23 06:56 O2 Del Method Room Air 08/23/23 06:56 BMI result Body Mass Index 22.4 Const: General: cooperative, healthy appearing and no acute distress Resp: Effort & Inspection: normal respiratory effort and able to speak in complete sentences Cardio: Rate: regular rate Peripheral pulses: Peripheral pulses 2+ throughout GI: Palpation (GI): Soft to palpation Skin: Lesions: no lesions Rashes: no rashes Extrem: Other: left upper extremity is in a sling. Able to move all digits. Able to flex and extend at the elbow. NVI. Results Labs 08/23/23 04:25 08/23/23 04:25 Labs: Abnormal lab results 08/23/23 08/23/23 Range/Units 02:54 04:25 Hgb 13.9 L (14.0-18.0) g/dl Hct 40.9 L (42.0-52.0) % Anion Gap 11 L (12-20) Urine Fentanyl Screen POSITIVE H (Not Detect) H & H 08/22/23 08/23/23 Range/Units 09:44 04:25 Hgb 14.5 13.9 L (14.0-18.0) g/dl Hct 42.9 40.9 L (42.0-52.0) % Coagulation 08/22/23 Range/Units 09:44 INR 1.0 (0.9-1.1) All other labs normal. Assessment and Plan (1) Closed left scapular fracture: Status: Acute Sling for comfort No heaving lifting pushing pulling f/u outpatient (2) Intractable pain: Status: Acute Procedures Date of Service Date of Service: 08/23/23
[2023-08-24 13:59] LABS: HCV Log PCR <1.18 NOT DETECTED Log IU/mL (NOT DETECTED); HepC Viral Load <15 NOT DETECTED IU/mL (NOT DETECTED)
== END 2023-08-23 13:41 | disposition home or self-care (01) | DRG 565 ==
LOC: HO.ED 11:44 → HO.EDOVER 18:12 → HO.S3 08-23 10:29
PROVIDERS: Physician Assistant Medical; Admitting Provider Physician Assistant; Emergency Provider Emergency Medicine; PCP Internal Medicine; Visit Provider Internal Medicine
DX: S42.192A Fracture of other part of scapula, left shoulder, initial encounter for closed fracture (principal); K51.90 Ulcerative colitis, unspecified, without complications; W20.8XXA Other cause of strike by thrown, projected or falling object, initial encounter; F19.11 Other psychoactive substance abuse, in remission; Z79.620 Long term (current) use of immunosuppressive biologic
CPT/HCPCS: 36415; 70450; 71260; 72125; 73030; 73200; 80048; 80053; 80307; 83735; 85025; 85610; 85730; 87389; 87522; 99285; J1170; J2405; J3010; J3360; Q9967

== ENCOUNTER → 2023-08-22 17:48 | Outpatient (BNV) | payer OTHER, SELFPAY | PROVIDERS: Admitting Provider Physician Assistant; Emergency Provider Emergency Medicine; PCP Internal Medicine; Visit Provider Physician Assistant | DX: S42.102A Fracture of unspecified part of scapula, left shoulder, initial encounter for closed fracture (principal) | CPT/HCPCS: 99223; 99239 ==

== ENCOUNTER → 2023-08-22 17:48 | Outpatient (BNV) | payer OTHER, SELFPAY | PROVIDERS: Admitting Provider Physician Assistant; Emergency Provider Emergency Medicine; PCP Internal Medicine; Visit Provider Nurse Practitioner Psychiatric/Mental Health | DX: F19.11 Other psychoactive substance abuse, in remission (principal); S42.102A Fracture of unspecified part of scapula, left shoulder, initial encounter for closed fracture | CPT/HCPCS: 99221 ==

== ENCOUNTER → 2023-08-22 17:48 | Outpatient (BNV) | payer OTHER, SELFPAY | PROVIDERS: Admitting Provider Physician Assistant; Emergency Provider Emergency Medicine; PCP Internal Medicine; Visit Provider Physician Assistant | DX: S42.102A Fracture of unspecified part of scapula, left shoulder, initial encounter for closed fracture (principal) | CPT/HCPCS: 99221 ==

== ENCOUNTER 2023-09-08 08:54 | Outpatient (REF) | payer OTHER, SELFPAY ==
--- NOTE | ~2023-09-08 | XR_ITS ---
EXAMINATION: XR SCAPULA, LEFT CLINICAL INFORMATION: Pain COMPARISON: Shoulder CT 09/01/2023. TECHNIQUE: AP and scapular Y views of the left scapula. FINDINGS: Displaced comminuted fracture of the scapula again seen and better appreciated on prior CT with persistent lucency at the fracture margins. Joint spaces are maintained. Calcification in the coracoclavicular joint space may reflect sequelae of hydroxyapatite deposition disease. Dense sclerotic lesions in the humeral head and proximal humeral humeral diaphysis may reflect bone islands. XR/XR scapula LT IMPRESSION: 1. Displaced comminuted fracture of the scapula again seen and better appreciated on prior CT with persistent lucency at the fracture margins. 2. Calcification in the coracoclavicular joint space may reflect sequelae of hydroxyapatite deposition disease.
== END 2023-09-08 08:55 | disposition home or self-care (01) ==
LOC: HO.HOSX 08:54
PROVIDERS: Visit Provider Orthopaedic Surgery
DX: S42.102A Fracture of unspecified part of scapula, left shoulder, initial encounter for closed fracture (principal); W20.8XXA Other cause of strike by thrown, projected or falling object, initial encounter; Y93.9 Activity, unspecified; Y92.9 Unspecified place or not applicable; Y99.9 Unspecified external cause status
CPT/HCPCS: 73010; 99212

== ENCOUNTER 2023-09-08 10:48 | Outpatient (AMB) | payer OTHER, SELFPAY ==
--- NOTE | 2023-09-08 11:06 | MHC.OFFVIS ---
Vital Signs 09/08/23 11:07 Height 6 ft 1 in Weight 165 lb BMI 21.8 Handedness Right Intake Visit Reasons: OV - Left Scapula Fx 08/22/23 Allergies No Known Allergies [No Known Allergies*] Allergy (Verified 08/22/23 08:39) HPI HPI OV - Left Scapula Fx 08/22/23: Details: Sandro is a 42 year old right hand dominant male who presents today for an ED follow up of his left shoulder. Patient reports that a tree branch fell on his back on 08/23/23 causing a scapular fracture. He was admitted due to intractable pain. Patient reports that he is doing well, he would like to know when he is able to start therapy & when he can discontinue the sling. he is having very mild pain. Denies numbness and tingling [facility] Medical History History of substance abuse Ulcerative colitis Social History Unable to assess alcohol history related to: Unknown Patient Tobacco Use Status: Never used Tobacco Advance Directives Date on File: 08/23/23 Physical Exam Vital Signs: BMI result Body Mass Index 21.8 Extrem Other: difficult to reproduce pain. there is mild discomfort with palpation along medial scapular spine. No shoulder ROM restrictions Results Reviewed Results Reviewed: unchanged minimally displaced fracture of scapular body Assessment & Plan Assessment & Plan (1) Closed left scapular fracture: Code(s): S42.102A - Fracture of unspecified part of scapula, left shoulder, initial encounter for closed fracture Category: Medical Plan I have placed an order for outpatient PT Follow up PRN Orders: Orders PT Evaluation and Treatment Today S42.102A - Fracture of unspecified part of scapula, left shoulder, initial encounter for closed fracture XR scapula LT 09/08/23 S42.102A - Fracture of unspecified part of scapula, left shoulder, initial encounter for closed fracture Medications: Discontinued ibuprofen (Motrin IB) Discontinued Reason: Patient no longer taking 600 mg (3 x 200 mg) PO Q8H PRN 30 tabs 0RF pain (scale score 4-6) oxycodone Partial Fill upon patient request. Discontinued Reason: Patient no longer taking 10 mg PO Q8H PRN 24 tabs 0RF pain (scale score 7-10) Coding Level of Care Code Est Pt Level 3 (94326) Diagnoses Closed left scapular fracture S42.102A
[2023-09-08 11:07] VITALS: BMI 21.8
== END 2023-09-08 11:30 | disposition home or self-care (01) ==
PROVIDERS: PCP Internal Medicine; Visit Provider Orthopaedic Surgery
DX: S42.102A Fracture of unspecified part of scapula, left shoulder, initial encounter for closed fracture (principal)
CPT/HCPCS: 99213

== ENCOUNTER 2023-10-17 16:00 | Outpatient (RCR) | payer OTHER, SELFPAY ==
--- NOTE | 2023-09-28 15:10 | MHC.PT.EP ---
[facility] [place] Office [place] Office [place] Office [address] [phone] F: [phone] F: [phone] F: [phone] F: [phone] Physical Therapy Plan of Care Date of Evaluation: 09/28/23 Date of Surgery: Diagnosis: This is a 43 yo male presenting to skilled PT with a script for fx of L shoulder/scapula. Assessment: This is a 43 yo male presenting to skilled PT with a script for fx of L shoulder/scapula. Patient reports that a tree branch fell on his back on 08/22/23 causing a scapular fracture. He was admitted due to intractable pain for 2 days at [facility] and was then DC'd with a sling which was then DC'd after 2 weeks. He has seen [facility] and [facility]. He was last seen by [facility] on 09/07 without restrictions for PT. He reports that his function is improving. Pain increases with reaching behind and overhead, pushing and functionally with turning the steering wheel, rolling in his sleep and ADLs. Pain is described as soreness not sharp pain. Pain is located at the medial border of the scap and ACJ. He does not have an appointment yet to follow up with [facility] but was educated to make one in order to return to work as he needs a note from a doctor to do so. Assessment reveals pain that ranges from up to a 7/10 at the worst. Patient demos decreased B shoulder and scapular ROM, strength of B shoulder and scapular stabilizers, TTP at medial joint line of scap and ACJ and impaired posture with forward head and rounded shoulders. Based on functional limitations, impaired QOL and pain tolerance patient is a good candidate for skilled PT 2x/wk for 4wks. Frequency and Duration: The patient will be seen 2x/wk for 4wks Short Term Goals: (In 2 weeks) Demo I with HEP Improve shoulder AROM by at least 10 degs Demo proper scapular recruitment with appropriate shoulder strengthening exercises Continuity Coordinator Goals: (in 4 wks) Improve shoulder nonpainful AROM to almost near equal B Demo at least 1 grade improvement in MMT for shoulder Improve SPADI by at least 10 points Improve overall functional QOL by at least 50% Treatment Plan: Modalities to reduce pain, spasms and effusion. Manual therapy to restore motion and function. Therapeutic exercise to improve strength and flexibility. Neuromuscular re-education for posture and balance. Therapeutic activities to return to functional activities of daily living. Electronically signed by: Lulu Lundy PT Please sign and return to therapist. Thank you for your referral.
--- NOTE | 2023-10-17 17:07 | MHC.PT.DC ---
[facility] [place] Office [place] Office [place] Office [address] [phone] F: [phone] F: [phone] F: [phone] F: [phone] Physical Therapy Discharge Report Diagnosis: This is a 43 yo male presenting to skilled PT with a script for fx of L shoulder/scapula. Date of Surgery: Date of Evaluation: 09/28/23 Date of Discharge: 10/17/23 Treatments to Date: 1 Cancellations to Date: 0 No Shows to Date: 3 Discharge Status: Visit Non-compliance Discharge Summary: Patient no showed to 3 tx sessions. Patient DC'd due to visit compliance. Electronically signed by: Lulu Lundy PT Please sign and return to therapist. Thank you for your referral.
== END 2023-10-17 17:07 | disposition home or self-care (01) ==
LOC: HO.PTCHIC 16:00
PROVIDERS: PCP Internal Medicine; Visit Provider Orthopaedic Surgery
DX: S42.102D Fracture of unspecified part of scapula, left shoulder, subsequent encounter for fracture with routine healing (principal)
CPT/HCPCS: 97110; 97161; 97162

== ENCOUNTER 2024-03-10 14:43 | Emergency (ER) | payer OTHER, SELFPAY ==
--- NOTE | ~2024-03-10 | XR_ITS ---
Examination: Left hand/wrist 4 views. Left forearm 2 views. CLINICAL INDICATION: Pain injury. COMPARISON: Left hand 11/28/2019. FINDINGS: Left hand/wrist: There is a minimally displaced fracture distal radius adjacent to the scaphoid bone with minimal soft tissue swelling. There is widening of scapholunate distance from ligament tear. Also visualized is lunate dislocation. No other fracture or dislocation seen. Moderate molar left wrist soft tissue swelling. Left forearm: The size of the distal radial fracture no additional fractures seen involving the radius or the ulna. Soft tissues are normal. XR/XR forearm LT 2V IMPRESSION: 1. Minimally displaced fracture distal radius adjacent to the scaphoid bone with moderate soft tissue swelling. 2. There is widening of scapholunate distance from ligament tear. 3. There is lunate dislocation. Electronically signed by: Michael Case MD 03/10/2024 04:12 PM EDT
--- NOTE | ~2024-03-10 | XR_ITS ---
EXAMINATION: XR WRIST, LEFT CLINICAL INFORMATION: Lunate dislocation. COMPARISON: Left wrist 03/10/2024 at 3:28 PM TECHNIQUE: PA image only of the left wrist as per referring physician. FINDINGS: Exam is limited The scapholunate junction has been reduced. Likely improved lunate dislocation. There is no visible small avulsion fracture involving the triquetrum adjacent to triangular fibrocartilage. It appears unchanged to previous exam. XR/XR wrist LT 2V IMPRESSION: Exam is limited with improved scapholunate space. Small avulsion fracture likely arising of triquetrum is stable. Electronically signed by: Michael Case MD 03/10/2024 05:34 PM EDT
--- NOTE | ~2024-03-10 | XR_ITS ---
Examination: Left hand/wrist 4 views. Left forearm 2 views. CLINICAL INDICATION: Pain injury. COMPARISON: Left hand 11/28/2019. FINDINGS: Left hand/wrist: There is a minimally displaced fracture distal radius adjacent to the scaphoid bone with minimal soft tissue swelling. There is widening of scapholunate distance from ligament tear. Also visualized is lunate dislocation. No other fracture or dislocation seen. Moderate molar left wrist soft tissue swelling. Left forearm: The size of the distal radial fracture no additional fractures seen involving the radius or the ulna. Soft tissues are normal. XR/XR hand wrist LT IMPRESSION: 1. Minimally displaced fracture distal radius adjacent to the scaphoid bone with moderate soft tissue swelling. 2. There is widening of scapholunate distance from ligament tear. 3. There is lunate dislocation. Electronically signed by: Michael Case MD 03/10/2024 04:12 PM EDT
[2024-03-10 14:48] VITALS: BP 135/76; PULSE 63; RESP 20; TEMP 36.4; O2SAT 100; BMI 22.4
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
[2024-03-10] MEDS: Ibuprofen 600 MG TABLET PO (15:44)
[2024-03-10] MEDS: oxyCODONE HCl Immed Release 5 MG TABLET PO (15:44)
[2024-03-10] MEDS: Lidocaine HCl 1 % MPF 5 ML VIAL 10 ML SUBCUT (16:38)
[2024-03-10 17:05] VITALS: BP 134/87; PULSE 79; RESP 20; TEMP 36.7; O2SAT 98
[2024-03-10 17:43] VITALS: BP 134/87; PULSE 79; RESP 20; TEMP 36.7; O2SAT 98
== END 2024-03-10 17:43 | disposition home or self-care (01) ==
PROVIDERS: Emergency Provider Emergency Medicine; PCP Internal Medicine
DX: S52.502A Unspecified fracture of the lower end of left radius, initial encounter for closed fracture (principal); S63.095A Other dislocation of left wrist and hand, initial encounter; M79.642 Pain in left hand; V19.9XXA Pedal cyclist (driver) (passenger) injured in unspecified traffic accident, initial encounter; Y93.89 Activity, other specified; Y92.410 Unspecified street and highway as the place of occurrence of the external cause; Y99.8 Other external cause status
CPT/HCPCS: 25605; 29125; 73090; 73100; 73110; 73130; 99284; J2003

== ENCOUNTER 2024-03-20 08:30 | Outpatient (REF) | payer OTHER, SELFPAY | END 2024-03-20 08:31 | disposition home or self-care (01) | LOC: HO.HOSX 08:30 | DX: Z13.89 Encounter for screening for other disorder (principal) ==

== ENCOUNTER 2025-01-26 15:45 | Emergency (ER) | payer OTHER, SELFPAY ==
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
--- NOTE | ~2025-01-26 | XR_ITS ---
CLINICAL HISTORY: pain, injury 4 view right shoulder Comparison: CR/AZ/SR - XR SHOULDER 2 OR MORE VIEWS LEFT - 08/22/23 08:42 EDT Findings: Bones intact. No dislocations. No significant loss of joint space or osteophytes. No erosions. No radiopaque foreign body. IMPRESSION: 1. No acute findings This document has been electronically signed by: Zac Gomez MD on 01/26/2025 16:25:11
--- NOTE | ~2025-01-26 | XR_ITS ---
CLINICAL HISTORY: pain, injury 3 view right elbow Comparison: None provided Findings: No acute fractures or dislocations. No significant loss of joint space, osteophytes, or erosions. No joint effusion. No radiopaque foreign body. IMPRESSION: 1. No acute findings. This document has been electronically signed by: Zac Gomez MD on 01/26/2025 16:25:01
[2025-01-26 15:51] VITALS: BP 155/82; PULSE 74; RESP 16; TEMP 36.8; O2SAT 99; BMI 20.3
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
[2025-01-26 16:34] VITALS: BP 133/80; PULSE 67; RESP 20; TEMP 36.7; O2SAT 98
[2025-01-26] MEDS: oxyCODONE HCl Immed Release 5 MG TABLET PO (16:44)
[2025-01-26] MEDS: Lidocaine HCl 1 % MPF 5 ML VIAL INFILTRATI (16:45)
[2025-01-26] MEDS: Diphth,Pertus(ACell),Tet Adult 0.5 ML SYRINGE IM (19:00)
[2025-01-26 19:06] VITALS: BP 131/75; PULSE 77; RESP 16; TEMP 36.6; O2SAT 99
== END 2025-01-26 19:06 | disposition home or self-care (01) ==
PROVIDERS: Emergency Provider Emergency Medicine Emergency Medical Services; PCP Internal Medicine
DX: S40.211A Abrasion of right shoulder, initial encounter (principal); S51.011A Laceration without foreign body of right elbow, initial encounter; R10.2 Pelvic and perineal pain; M25.511 Pain in right shoulder; V19.9XXA Pedal cyclist (driver) (passenger) injured in unspecified traffic accident, initial encounter; Y93.55 Activity, bike riding; Y92.410 Unspecified street and highway as the place of occurrence of the external cause; Y99.8 Other external cause status; Z23 Encounter for immunization
CPT/HCPCS: 12001; 73030; 73080; 73502; 73700; 90471; 90715; 99284; J2003

== ENCOUNTER → 2025-01-26 15:52 | Outpatient (BNV) | payer OTHER, SELFPAY | PROVIDERS: Emergency Provider Emergency Medicine Emergency Medical Services; PCP Internal Medicine; Visit Provider Radiology Diagnostic Radiology | DX: M25.551 Pain in right hip (principal); M25.511 Pain in right shoulder; S51.011A Laceration without foreign body of right elbow, initial encounter; W19.XXXA Unspecified fall, initial encounter | CPT/HCPCS: 73030; 73080; 73502; 73700 ==